=== PATIENT | female | born 1940 | race Caucasian/White ===

== ENCOUNTER 2019-03-08 15:27 | Inpatient (IN) | payer MEDICARE, SELFPAY ==
[2019-03-08] VITALS (7 sets, daily range): BP systolic 104–130; BP diastolic 62–75; PULSE 61–70; RESP 20–27; TEMP 36.4; O2SAT 89–100; BMI 31.8
--- NOTE | 2019-03-08 15:37 | XRR_ITS ---
PROCEDURE INFORMATION: Exam: XR Chest, 1 View Exam date and time: 03/08/2019 4:24 PM Age: 78 years old Clinical indication: Chest pain; Additional info: SOB TECHNIQUE: Imaging protocol: XR of the chest Views: 1 view. COMPARISON: CR Chest 1 view [id number] 11/09/2018 8:51 AM FINDINGS: Lungs: Right basilar airspace consolidation and/or atelectasis is noted. The right hemidiaphragm is obscured. Mild left basilar pneumonitis, atelectasis or scarring is unchanged. The vascularity is within normal limits. Underlying hyperinflation/COPD is noted. Pleural space: Small to moderate size right pleural effusion. No significant left pleural effusion. No pneumothorax. Heart/Mediastinum: The heart is enlarged. Bones/joints: No acute abnormality. XR/XR chest 1V portable [id number] IMPRESSION: 1. Right basilar airspace consolidation and/or atelectasis is noted. The right hemidiaphragm is obscured. Probable right pleural effusion. 2. Unchanged atelectasis/scarring left lower lobe.
--- NOTE | 2019-03-08 15:37 | ECG_ITS ---
Measurements Intervals [place] Rate: 68 P: 74 CA: 161 QRS: 133 QRSD: 174 T: -60 QT: 427 QTc: 455 SINUS RHYTHM LEFT BUNDLE BRANCH BLOCK [120+ ms QRS DURATION, 80+ ms Q/S IN V1/V2, 85+ ms R IN I/aVL/V5/V6] LATERAL MYOCARDIAL INFARCTION [40+ ms Q WAVE AND/OR ST/T ABNORMALITY IN I/aVL/V5/V6], PROBABLY RECENT Compared to ECG 11/08/2018 15:50:56 Myocardial infarct finding now present Sinus bradycardia no longer present Ventricular premature complex(es) no longer present Electronically Signed On 03-08-2019 18:34:49 VISCOSITY INSPECTOR by Genny Montez M.D. [email or web address]
[2019-03-08 16:28] LABS: Basophils % 0.4 %; Eosinophils % 0.6 %; Hematocrit 36.9 % (37.0-47.0); Lymphocytes # 0.8 10^3/uL (0.8-4.8); Lymphocytes % 16.1 %; Mean Corpuscular HGB Conc 29.8 g/dL (30.0-36.0); Mean Corpuscular Hemoglobin 27.3 pg (28.0-34.0); Mean Corpuscular Volume 91.6 fL (81-99); Mean Platelet Volume 10.9 fL (7.4-10.4); Monocytes # 0.6 10^3/uL (0.2-0.9); Monocytes % 11.9 %; Neutrophils # 3.6 10^3/uL (1.8-7.7); Neutrophils % 70.6 %; Nucleated Red Blood Cells % 0 %; Platelet Count 139 10^3/cmm (130-400); Red Blood Count 4.03 10^6/uL (4.1-5.3); Red Cell Distribution Width 18.4 % (12.1-15.1)
[2019-03-08 16:54] LABS: Alanine Aminotransferase 14 U/L (0-33); Albumin Level 3.2 g/dL (3.5-5.2); Alkaline Phosphatase 131 IU/L (35-105); Anion Gap 15.9 (5-19); Aspartate Amino Transferase 24 U/L (0-32); Blood Urea Nitrogen 44 mg/dL (8-23); Calcium 11.2 mg/dL (8.5-10.5); Carbon Dioxide 29 mmol/L (22-29); Chloride 93 mmol/L (98-107); Globulin 3.2 g/dL (1.3-4.6); Glucose 91 mg/dL (74-106); Potassium 4.9 mmol/L (3.5-5.1); Sodium 133 mmol/L (136-145); Total Bilirubin 0.6 mg/dL (0.15-1.2); Total Protein 6.4 g/dL (6.6-8.7)
--- NOTE | 2019-03-08 17:48 | ED_ITS ---
Entered by Abimbola Heredia, acting as scribe for Geovany Pineda MD, [facility] [place] Mar 08, 2019 15:27 HPI - SOB/Dyspnea General: Chief Complaint: Shortness of Breath/Dyspnea Stated Complaint: swollen limbs Time Seen by Provider: 03/08/19 17:49 Source: patient Mode of arrival: ambulatory Limitations: no limitations History of Present Illness: HPI Narrative: 78 yo Female presents to ED with complaint of shortness of breath. Pt states that she is filled up with water. Pt's daughter states that Dr. Lechuga sent her over from his office. Pt states that she only has 1 kidney. Pt states that she has CHF and Dr. Lechuga is concerned about it affecting her heart. Pt states that she has swelling in her legs, stomach, and hips. Pt's family states that patient is taking 80 mg of Lasix 3 times per day and the water is not coming off of her. Pt states that she is also having issues with her jaw not opening very wide for the past few months. Pt states that she can hardly take bites of food because of her jaw. MD elicited complaint: shortness of breath and cough Pertinent past history: congestive heart failure Timing: progressively worsening Exacerbating factors: lying flat, exertion and coughing Relieving factors: oxygen and upright position Known history of: congestive heart failure Associated symptoms: Reports orthopnea; Deny abdominal pain, chest pain, extremity pain, fever(s), nausea, palpitations, polydipsia, polyuria or vomiting Treatment prior to arrival: oxygen Review of Systems General: Reports: 10 or more systems reviewed and unremarkable except in HPI and below Const: Denies: fever, chills or body aches Eyes: Denies: change in vision, blurry vision or blind spots ENMT: Denies: throat pain, enlarged tonsils, painful swallowing, hoarseness, mouth pain or swelling of lips/tongue Card: Reports: edema, swelling of feet/ankles, shortness of breath on exertion and shortness of breath when lying down; Denies: chest pain, palpitations or irregular heart rhythm Resp: Reports: shortness of breath and productive cough; Denies: non-productive cough GI: Denies: abdominal pain, nausea or vomiting : Denies: flank pain, difficulty urinating, painful urination, urinary frequency, urinary urgency or urinary hesitancy Musc: Denies: neck pain, back pain, extremity pain, extremity swelling or darlene int pain Skin/Breast: Denies: rash, itching or redness Neuro: Denies: headache, numbness in extremities or weakness in extremities Endo: Denies: excessive urination, excessive thirst or tired all the time PFSH ED PFSH: Statuses (acute, chronic, etc) shown below reflect problem list status as previously entered and may not be historically accurate Medical History (Updated 03/08/19 @ 22:09 by Geovany Pineda MD, [facility] [place]) AAA (abdominal aortic aneurysm) (Acute) Anasarca (Acute) Anemia (Acute) CAD (coronary artery disease) (Acute) Cardiomyopathy (Acute) COPD (chronic obstructive pulmonary disease) (Acute) DVT (deep venous thrombosis) (Acute) Hyperlipidemia (Acute) Hypertension (Acute) Ischemic cardiomyopathy (Acute) Macrocytosis (Acute) Mediastinal mass (Acute) Surgical History S/P AAA repair (Acute) Family History Other CAD (coronary artery disease) Diabetes Social History (Updated 03/08/19 @ 21:29 by Genny Stinson MD) Smoking and tobacco status: current every day smoker Alcohol intake: never Substance/Drug Use: never Caregiver/support person: Yes Lives independently: No Household members: family Housing: House Marital status: Physical Exam Const: COMMON NORMALS: no apparent distress, average body habitus, oriented x3, no limitations, healthy appearing, alert and well nourished HENMT: COMMON NORMALS: normocephalic, head/scalp atraumatic and moist oral mucous membranes HEAD & SCALP: normocephalic and atraumatic Eye: COMMON NORMALS: PERRL, EOMs intact bilaterally, conjunctivae normal and no scleral icterus CONJUNCTIVA: Yes conjunctivae normal PUPIL: Yes PERRL Neck/C-Spine: COMMON NORMALS: full ROM, supple, no meningeal signs, no JVD and no carotid bruits Chest: COMMONS NORMALS: inspection of chest normal and palpation of chest normal Resp: COMMON NORMALS: normal respiratory effort, no retractions, no use of accessory muscles, clear to auscultation bilaterally and percussion normal AUSCULTATION: clear to auscultation bilaterally PERCUSSION: percussion normal Cardio: COMMON NORMALS: no JVD, regular rate, regular rhythm, S1 normal heart sound, S2 normal heart sound, no gallops, no clicks, no murmurs, no rub and p eripheral pulses 2+ throughout RATE: regular rate RHYTHM: regular rhythm HEART SOUNDS: S1 normal and S2 normal PERIPHERAL PULSES: pulses 2+ throughout GI: COMMON NORMALS: normal to inspection, nondistended, normoactive bowel sounds, soft to palpation, non-tender, no hepatosplenomegaly, no masses and no bruits PALPATION: Yes soft and Yes no hepatosplenomegaly : COMMON NORMALS: Yes no CVA tenderness BLADDER/KIDNEY EXAM: Yes no CVA tenderness Back/Pelvis: COMMON NORMALS: no CVA tenderness Extremity: COMMON NORMALS: normal to inspection, full ROM, normal capillary refill, no calf tenderness and no pedal edema Neuro: COMMON NORMALS: oriented x3 SENSORIUM/ORIENTATION: Yes alert MENINGEAL SIGNS: Yes no meningeal signs Skin: COMMON NORMALS: no rashes or lesions noted, no wounds, skin turgor normal, no jaundice, no petechiae and no mottling GENERAL SKIN EXAM: no rashes or lesions noted and turgor normal Course Consultations: Consultation #1: Dr. Grace, hospitalist. He kindly accepted the patient to his service. Vital Signs: Vital signs: Vital Signs Temperature 97.5 F L 03/08/19 20:57 Pulse Rate 61 03/08/19 20:57 Respiratory Rate 26 H 03/08/19 20:57 Blood Pressure 109/67 03/08/19 20:57 Pulse Oximetry 100 03/08/19 20:57 MDM - SOB/Dyspnea Medical Records: Attestation: I reviewed the patient's medical records. Lab Data: Attestation: I reviewed the patient's lab results. Labs: Lab Results 03/08/19 03/08/19 03/08/19 Range/Units 16:10 16:10 18:10 WBC 5.0 (4.0-10.0) 10^3/ uL RBC 4.03 L (4.1-5.3) 10^6/u L Hgb 11.0 L (11.5-15.3) g/dL Hct 36.9 L (37.0-47.0) % MCV 91.6 (81-99) fL MCH 27.3 L (28.0-34.0) pg MCHC 29.8 L (30.0-36.0) g/dL RDW 18.4 H (12.1-15.1) % Plt Count 139 (130-400) 10^3/c mm MPV 10.9 H (7.4-10.4) fL Neut % (Auto) 70.6 % Lymph % (Auto) 16.1 % Merrick % (Auto) 11.9 % Eos % (Auto) 0.6 % Baso % (Auto) 0.4 % Neut # (Auto) 3.6 (1.8-7.7) 10^3/u L Lymph # (Auto) 0.8 (0.8-4.8) 10^3/u L Merrick # (Auto) 0.6 (0.2-0.9) 10^3/u L Eos # (Auto) 0.0 (0.0-0.8) 10^3/u L Baso # (Auto) 0.0 (0.0-0.1) 10^3/u L Nucleated RBC % (a uto) 0 % Nucleated RBCs # 0.0 /100WBC Sodium 133 L (136-145) mmol/L Potassium 4.9 (3.5-5.1) mmol/L Chloride 93 L (98-107) mmol/L Carbon Dioxide 29 (22-29) mmol/L Anion Gap 15.9 (5-19) BUN 44 H (8-23) mg/dL Creatinine 1.5 H (0.5-0.9) mg/dL Glucose 91 (74-106) mg/dL Calcium 11.2 H (8.5-10.5) mg/dL Total Bilirubin 0.6 (0.15-1.2) mg/dL AST 24 (0-32) U/L ALT 14 (0-33) U/L Alkaline Phosphata se 131 H (35-105) IU/L Troponin T Baselin e 59 H (0-10) ng/mL NT-Pro-B Natriuret Pep [id number] H (0-450) pg/mL Total Protein 6.4 L (6.6-8.7) g/dL Albumin 3.2 L (3.5-5.2) g/dL Globulin 3.2 (1.3-4.6) g/dL Imaging Data^: CXR: Radiologist's impression: [address] [address] XRay Report Signed Patient: Aliya Gustafson #: [id number] : 1Acct#:[id number] Age/Sex: 78 / FADM Date: 03/08/19 Loc: ERRoom/Bed: Attending Dr: Ordering Provider/Ordering MD: Geovany Pineda MD, [facility] [place] Date of Service: 03/08/19 Procedure(s): XR chest 1V portable [id number] Accession Number(s): [id number] Report Number: [id number] PROCEDURE INFORMATION: Exam: XR Chest, 1 View Exam date and time: 03/08/2019 4:24 PM Age: 78 years old Clinical indication: Chest pain; Additional info: SOB TECHNIQUE: Imaging protocol: XR of the chest Views: 1 view. COMPARISON: CR Chest 1 view [id number] 11/09/2018 8:51 AM FINDINGS: Lungs: Right basilar airspace consolidation and/or atelectasis is noted. The right hemidiaphragm is obscured. Mild left basilar pneumonitis, atelectasis or scarring is unchanged. The vascularity is within normal limits. Underlying hyperinflation/COPD is noted. Pleural space: Small to moderate size right pleural effusion. No significant left pleural effusion. No pneumothorax. Heart/Mediastinum: The heart is enlarged. Bones/joints: No acute abnormality. XR/XR chest 1V portable [id number] IMPRESSION: 1. Right basilar airspace consolidation and/or atelectasis is noted. The right hemidiaphragm is obscured. Probable right pleural effusion. 2. Unchanged atelectasis/scarring left lower lobe. Dictated By:Shayla Gould Signed By:Skyler Gould Date/Time:03/08/19 1635 DD/ 1634 CT Abd/Pel: Radiologist's impression: [address] [address] [address] Scan Report Signed Patient: Aliya Gustafson #: [id number] : 1Acct#:[id number] Age/Sex: 78 / FADM Date: 03/08/19 Loc: ERRoom/Bed: Attending Dr: Ordering Provider/Ordering MD: Geovany Pineda MD, SONIA Date of Service: 03/08/19 Procedure(s): CT abdomen pelvis con [id number] Accession Number(s): [id number] Report Number: [id number] PROCEDURE INFORMATION: Exam: CT Abdomen And Pelvis Without Contrast Exam date and time: 03/08/2019 6:50 PM Age: 78 years old Clinical indication: Bloating; Prior surgery; Surgery type: Aaa, gb; Additional info: Abdominal distension TECHNIQUE: Imaging protocol: Computed tomography of the abdomen and pelvis without contrast. Total DLP: 1205.78 mGy-cm Radiation optimization: All CT scans at this facility use at least one of these dose optimization techniques: automated exposure control; mA and/or kV adjustment per patient size (includes targeted exams where dose is matched to clinical indication); or iterative reconstruction. COMPARISON: CTA Abdomen/Pelvis [id number] 01/13/2019 1:19 PM FINDINGS: Tubes, catheters and devices: A balloon bladder catheter is present. Lungs: Nonspecific bibasilar consolidation is present, consistent with atelectasis, edema, or pneumonia. Pleural space: There is a small left pleural effusion. There is a moderate size right pleural effusion. Both pleural effusions are slightly larger. Heart: The heart is enlarged. There is an unchanged small pericardial effusion. Liver: The liver has a finely nodular contour, consistent with cirrhosis. Gallbladder and bile ducts: There has been a cholecystectomy. Pancreas: Normal. No ductal dilation. Spleen: Normal. No splenomegaly. Adrenals: Normal. No mass. Kidneys and ureters: The left kidney is atrophic. There is no hydronephrosis or nephrolithiasis. Stomach and bowel: Unremarkable. No obstruction. No mucosal thickening. Appendix: No evidence of appendicitis. Intraperitoneal space: There is a small amount of ascites. Vasculature: There is a stent graft within an abdominal aortic aneurysm. The aneurysm sac is unchanged in appearance. No retroperitoneal fluid or evidence of leak. The aneurysm sac measures 5.6 by 6.3 cm in size image 49. Lymph nodes: Unremarkable.No enlarged lymph nodes. Bladder: Unremarkable as visualized. Reproductive: Unremarkable as visualized. Bones/joints: Osteopenia and moderate to severe degenerative changes in the spine are noted. No acute bony abnormality. Soft tissues: There is new diffuse subcutaneous and soft tissue edema compatible with anasarca. Diastasis of the rectus abdominus muscles with midline ventral hernia containing nonobstructed bowel and fat is noted. CT/CT abdomen pelvis wo con [id number] IMPRESSION: 1. Anasarca. Increasing pleural effusions. Small amount of ascites. Nodular contour of the liver is also noted compatible with mild cirrhosis. 2. Nonspecific bibasilar consolidation is present, consistent with atelectasis, edema, or pneumonia. 3. Diastasis of the rectus abdominus muscles with midline ventral hernia containing nonobstructed bowel and fat is noted. 4. Unchanged abdominal aortic aneurysm containing a stent graft. No evidence of retroperitoneal fluid or leaking aneurysm. 5. Atrophic left kidney. No hydronephrosis or nephrolithiasis. 6. Cardiomegaly. Radiation Dose CTDIVOL = (mGy): DLP = 1205.78 (mGy-cm) Dictated By:Shayla Gould Signed By:Anastasia Gouldigned Date/Time:03/08/191955 DD/ 54 EKG Data^: EKG 1: Attestation: I personally reviewed and interpreted this EKG as follows: EKG Interpretation Date: 03/08/19 EKG interpretation time: 15:45 Prior EKG tracings: not available for review Ischemic changes: q waves (Lead I) Interpretation: Sinus rhythm. Heart rate 68. Left bundle branch block. Normal axis EKG 2: Attestation: I personally reviewed and interpreted this EKG as follows: EKG Interpretation Date: 03/08/19 EKG interpretation time: 18:53 Prior EKG tracings: available for review Interpretation: No changes from the EKG earlier today Discharge Plan Discharge Patient Disposition: Admitted As Inpatient Admit Provider: Genny Stinson Clinical Impression: Anasarca, Congestive heart failure Condition: Stable Interventions: ED Discharge Assessment Last Done: 03/08/19 20:34 Discharge Date/Time: 03/08/19 20:35 Coding Level of Care Code ED Automation Operator for Chg Fwd Exam Problem Focused The documentation recorded by the scribe, [place],Abimbola, accurately reflects the service I personally performed and the decisions made by me, Geovany Pineda MD, [facility] [place] Mar 08, 2019 15:27
--- NOTE | 2019-03-08 18:08 | PC.NURSE ---
Patient reports that she was sent by Dr. Lechuga due to fluid overload. Patient states that she has had SOB. Patient reports the SOB increases with exertion and at night time. Patient states that she only has 1 kidney and it does not work well. Patient reports that she has CHF as well. Patient states she is on 2 water pills. Patient reports that her legs, and stomach are swelling. Patient reports that her legs have been weeping. Patient states that she has got so weak that it is difficult for her to get up.
--- NOTE | 2019-03-08 18:21 | CTR_ITS ---
PROCEDURE INFORMATION: Exam: CT Abdomen And Pelvis Without Contrast Exam date and time: 03/08/2019 6:50 PM Age: 78 years old Clinical indication: Bloating; Prior surgery; Surgery type: Aaa, gb; Additional info: Abdominal distension TECHNIQUE: Imaging protocol: Computed tomography of the abdomen and pelvis without contrast. Total DLP: 1205.78 mGy-cm Radiation optimization: All CT scans at this facility use at least one of these dose optimization techniques: automated exposure control; mA and/or kV adjustment per patient size (includes targeted exams where dose is matched to clinical indication); or iterative reconstruction. COMPARISON: CTA Abdomen/Pelvis [id number] 01/13/2019 1:19 PM FINDINGS: Tubes, catheters and devices: A balloon bladder catheter is present. Lungs: Nonspecific bibasilar consolidation is present, consistent with atelectasis, edema, or pneumonia. Pleural space: There is a small left pleural effusion. There is a moderate size right pleural effusion. Both pleural effusions are slightly larger. Heart: The heart is enlarged. There is an unchanged small pericardial effusion. Liver: The liver has a finely nodular contour, consistent with cirrhosis. Gallbladder and bile ducts: There has been a cholecystectomy. Pancreas: Normal. No ductal dilation. Spleen: Normal. No splenomegaly. Adrenals: Normal. No mass. Kidneys and ureters: The left kidney is atrophic. There is no hydronephrosis or nephrolithiasis. Stomach and bowel: Unremarkable. No obstruction. No mucosal thickening. Appendix: No evidence of appendicitis. Intraperitoneal space: There is a small amount of ascites. Vasculature: There is a stent graft within an abdominal aortic aneurysm. The aneurysm sac is unchanged in appearance. No retroperitoneal fluid or evidence of leak. The aneurysm sac measures 5.6 by 6.3 cm in size image 49. Lymph nodes: Unremarkable.No enlarged lymph nodes. Bladder: Unremarkable as visualized. Reproductive: Unremarkable as visualized. Bones/joints: Osteopenia and moderate to severe degenerative changes in the spine are noted. No acute bony abnormality. Soft tissues: There is new diffuse subcutaneous and soft tissue edema compatible with anasarca. Diastasis of the rectus abdominus muscles with midline ventral hernia containing nonobstructed bowel and fat is noted. CT/CT abdomen pelvis wo con [id number] IMPRESSION: 1. Anasarca. Increasing pleural effusions. Small amount of ascites. Nodular contour of the liver is also noted compatible with mild cirrhosis. 2. Nonspecific bibasilar consolidation is present, consistent with atelectasis, edema, or pneumonia. 3. Diastasis of the rectus abdominus muscles with midline ventral hernia containing nonobstructed bowel and fat is noted. 4. Unchanged abdominal aortic aneurysm containing a stent graft. No evidence of retroperitoneal fluid or leaking aneurysm. 5. Atrophic left kidney. No hydronephrosis or nephrolithiasis. 6. Cardiomegaly. Radiation Dose CTDIVOL = (mGy): DLP = 1205.78 (mGy-cm)
--- NOTE | 2019-03-08 18:25 | ECG_ITS ---
Measurements Intervals [place] Rate: 63 P: 48 DE: 171 QRS: 170 QRSD: 184 T: 18 QT: 455 QTc: 469 SINUS RHYTHM Left bundle branch block Possible LATERAL MYOCARDIAL INFARCTION [40+ ms Q WAVE AND/OR ST/T ABNORMALITY IN I/aVL/V5/V6], OF INDETERMINATE AGE Compared to ECG 03/08/2019 15:44:54 Possible myocardial infarct finding still present Electronically Signed On 03-09-2019 11:32:57 WIRE STITCHER OPERATOR by Tello Elizabeth M.D. [email or web address]
[2019-03-08] MEDS: FUROsemide 10 mg/mL SDV 10mL 80 MG IVP (18:39)
[2019-03-08 18:48] LABS: Troponin(5th) Baseline 59 ng/mL (0-10)
--- NOTE | 2019-03-08 20:05 | P.HP_ITS ---
Providers/Chief Complaint Chief Complaint: swollen limbs History of Present Illness Aliya Gustafson is a 78 year old female who carries diagnosis of ischemic cardiomyopathy EF 28%, COPD, DVT, chronic anticoagulation with Eliquis, AAA status post stent graft from left groin 02/[address] Lechuga today because of worsening edema. Patient has refused AICD in the past and has been taking Lasix along Bumex without much diuretic response, currently she is suffering from anasarca, and shortness of breath. Patient is stating that she is not active at all she is basically bedbound and get out of bed to go to bathroom otherwise her quality of life has been deteriorating. Her is assisting her with most of her daily activities, she is on Bumex milligram which she takes at noon with Lasix 3 times a day 80 mg without much diuretic response. She does not use any CPAP at night, she has been using oxygen [id number]. She is not complaining of any active chest pain at the moment, positive for orthopnea, PND and generalized body swelling up to her abdomen.. No recent fl ulike symptoms. Diagnostics in ER showed normal hemodynamics, she was put on 3 L nasal cannula for her hypoxia on room air. BNP extremely high 66,000, CT abdomen and chest x- ray imaging consistent with generalized anasarca with pleural effusion bilaterally When I saw her she was able to give me all the details. Review of Systems Const: Reports: body aches, change in appetite, change in weight, fatigue and change in sleep pattern; Denies: fever or chills Eyes: Denies: change in vision ENMT: Denies: throat pain Card: Reports: edema, swelling of feet/ankles and shortness of breath when lying down; Denies: chest pain, palpitations or irregular heart rhythm Resp: Reports: shortness of breath, non-productive cough and chest congestion GI: Reports: bloating; Denies: abdominal pain, nausea, vomiting, coffee grounds in vomit, diarrhea or constipation : Denies: flank pain, painful urination or urinary frequency Musc: Reports: extremity pain, extremity swelling, limited range of motion, muscle cramps, muscle weakness and decrease in muscle mass; Denies: neck pain or back pain Skin/Breast: Denies: rash or itching Neuro: Denies: headache or numbness in extremities Psych: Reports: anxiety Endo: Denies: excessive urination Gómez/Lymph: Denies: easy bruising All/Imm: Denies: hives Medications/Allergies Allergies Allergy/AdvReac Type Severity Reaction Status Date / Time No Known Allergies Allergy Unverified 03/08/19 14:43 PFSH Acute PFSH: Statuses (acute, chronic, etc) shown below reflect problem list status as previously entered and may not be historically accurate Medical History AAA (abdominal aortic aneurysm) (Acute) Anasarca (Acute) Anemia (Acute) CAD (coronary artery disease) (Acute) Cardiomyopathy (Acute) COPD (chronic obstructive pulmonary disease) (Acute) DVT (deep venous thrombosis) (Acute) Hyperlipidemia (Acute) Hypertension (Acute) Macrocytosis (Acute) Mediastinal mass (Acute) Surgical History S/P AAA repair (Acute) Family History Other CAD (coronary artery disease) Diabetes Social History (Updated 03/08/19 @ 21:29 by Genny Stinson MD) Smoking and tobacco status: current every day smoker Alcohol intake: never Substance/Drug Use: never Caregiver/support person: Yes Lives independently: No Household members: family Housing: House Marital status: Vitals/I&O/Wt Last Vital Signs Temp 97.5 F L 03/08/19 15:30 Pulse 65 03/08/19 18:38 Resp 27 H 03/08/19 18:38 BP 130/75 03/08/19 18:38 Pulse Ox 100 03/08/19 18:38 Weight last 48 hrs Weight 81.647 kg Physical Exam Narrative: EXAM NARRATIVE: Elderly female who looks to be in mild respiratory distress with chest congestion Has generalized anasarca Saturating well on 2 L nasal cannula Heart rate 70, blood pressure 110/70 Able to give me all the details Positive JVD, generalized anasarca, 3+ pitting edema starting from her feet extending up to her abdomen abdomen, abdominal wall edema positive Hull catheter is draining concentrated yellow urine Bilateral rhonchi with crackles all over her chest with decreased breath sounds on the right side S1, S2 no active murmur positive signs of decompensated heart failure Neurologically nonfocal exam She seems very weak and lethargic, muscle mass loss, EOMI, PERRLA Appropriate mood and affect She seems to have poor insight to her medical condition Urinary Catheter Management^: Hull: Cath Placed During This Visit: no Data : 03/08/19 16:10 03/08/19 16:10 A&P Assessment and plan (1) Anasarca: Status: Acute Code(s): R60.1 - Generalized edema (2) Cardiomyopathy: Status: Acute Code(s): I42.9 - Cardiomyopathy, unspecified (3) Anemia: Status: Acute Qualifiers: Anemia type: iron deficiency Iron deficiency anemia type: other iron deficiency Qualified Code(s): D50.8 - Other iron deficiency anemias Code(s): D64.9 - Anemia, unspecified (4) Acute kidney injury: Status: Acute Code(s): N17.9 - Acute kidney failure, unspecified Additional A&P Information Systolic congestive heart failure active exacerbation Ischemic cardiomyopathy causing reduced ejection fraction I believe active exacerbation is secondary to a gradual decline in her ejection fraction However she is not on metoprolol succinate, spironolactone, hydralazine, statins, Her EF is 28%, she has refused AICD in the past He seems to have poor insight to her medical condition Would use Bumex drip because she has not been responsive to Bumex and Lasix at home, she will be a poor candidate for ultrafiltration for removal of intravascular volume I would start her on low-dose metoprolol succinate, statins and avoid use of aspirin as she is on Eliquis COPD exacerbation due to congestive heart failure exacerbation and active smoking Counseled extensively on quitting smoking and her risk of respiratory failure and cardiac arrest Would use BiPAP for now decrease her work of breathing chronic kidney disease secondary to cardiorenal intervascular congestion Current creatinine 1.5, which is her baseline For bilateral pleural effusion: I would use diuretics to decrease pleural fluid and wait on thoracentesis for now, would continue Eliquis Previous history of DVT currently on Eliquis DVT prophylaxis: Not needed currently, she is on Eliquis Goals of care: We had discussion about possibilities of malignant arrhythmia such as V. tach V. fib, cardiac arrest, respiratory distress, patient is full code for now would like to discuss goals of care with her and update us in future However now she understands that because of her extremely reduced ejection fraction she is high risk for malignant arrhythmia and cardiac arrest Attestations Medical Necessity Statement*: Anticipating her stay to cross more than 2 midnights in the hospital for severe exacerbation of heart failure Time Spent in Patient Care: 60 Coding Level of Care Code Acute Alloy Weigher for Maria E Fwd Diagnoses Anasarca R60.1 Cardiomyopathy I42.9 Anemia D50.8 Anemia type: iron deficiency Iron deficiency anemia type: other iron deficiency Acute kidney injury N17.9
--- NOTE | 2019-03-08 20:25 | ECG_ITS ---
Measurements Intervals [place] Rate: 63 P: 61 UT: 161 QRS: 89 QRSD: 180 T: -35 QT: 438 QTc: 449 SINUS RHYTHM LEFT BUNDLE BRANCH BLOCK [120+ ms QRS DURATION, 80+ ms Q/S IN V1/V2, 85+ ms R IN I/aVL/V5/V6] LATERAL MYOCARDIAL INFARCTION , OF INDETERMINATE AGE [40+ ms Q WAVE AND/OR ST/T ABNORMALITY IN I/aVL/V5/V6] Compared to ECG 03/08/2019 15:44:54 No significant changes Electronically Signed On 03-09-2019 11:34:40 CLINICAL SOCIAL WORK THERAPIST by Tello Elizabeth M.D. [email or web address]
[2019-03-08] MEDS: bumetanide 25 MG in empty flexible container 1 EACH 4 MG IV (21:22)
[2019-03-08 21:27] LABS: Magnesium 2.2 mg/dL (1.7-2.3); Phosphorus 3.6 mg/dL (2.5-4.5)
[2019-03-08 21:31] LABS: Troponin 5 2HR 61.43 ng/mL (0-10); Troponin 5 2HR Delta 2.43 ABS# (0-10)
[2019-03-08] MEDS: ipratropium-albuterol 3 mL Neb INHALATION (23:25)
[2019-03-09] VITALS (13 sets, daily range): BP systolic 107–117; BP diastolic 63–76; PULSE 52–89; RESP 18–24; TEMP 36.4–36.8; O2SAT 96–100
[2019-03-09 00:55] LABS: Troponin 5 6HR 64.16 ng/L (0-10); Troponin 5 6HR Delta 5.16 ng/L (0-12)
[2019-03-09] MEDS: ipratropium-albuterol 3 mL Neb INHALATION ×4 (03:25→20:02)
[2019-03-09 05:52] LABS: Basophils % 0.5 %; Eosinophils % 0.7 %; Hematocrit 34.7 % (37.0-47.0); Hemoglobin 10.4 g/dL (11.5-15.3); Lymphocytes % 24.5 %; Mean Corpuscular Hemoglobin 28.3 pg (28.0-34.0); Mean Corpuscular Volume 94.6 fL (81-99); Mean Platelet Volume 10.7 fL (7.4-10.4); Monocytes # 0.6 10^3/uL (0.2-0.9); Monocytes % 13.6 %; Neutrophils # 2.4 10^3/uL (1.8-7.7); Neutrophils % 60.2 %; Nucleated Red Blood Cells % 0 %; Platelet Count 122 10^3/cmm (130-400); Red Blood Count 3.67 10^6/uL (4.1-5.3); Red Cell Distribution Width 18.2 % (12.1-15.1)
[2019-03-09 06:11] LABS: Anion Gap 16.1 (5-19); Blood Urea Nitrogen 40 mg/dL (8-23); Calcium 10.4 mg/dL (8.5-10.5); Carbon Dioxide 27 mmol/L (22-29); Chloride 98 mmol/L (98-107); Glucose 71 mg/dL (74-106); Osmolality Calculated 278 mOsm/kg (285-295); Potassium 5.1 mmol/L (3.5-5.1); Sodium 136 mmol/L (136-145)
[2019-03-09] MEDS: apixaban 5 mg Tablet PO ×2 (08:41→17:21)
[2019-03-09 08:54] LABS: Glucose Point of Care 58 mg/dL (70-110)
[2019-03-09] MEDS: FUROsemide 10 mg/mL SDV 10mL 100 MG IVP (09:16)
[2019-03-09] MEDS: FUROsemide 100 MG in sodium chloride 0.9% 40 ML IV ×2 (10:14→19:24)
[2019-03-09 10:54] LABS: Glucose Point of Care 83 mg/dL (70-110)
--- NOTE | 2019-03-09 12:41 | USCV_ITS ---
Aliya Gustafson Age: 78 Gender: F : 1940 Exam Date: 03/09/2019 14:23 Ordering Phys: Ambrocio Frazier MD Technologist: [place] [facility] [place]: Bilateral lower extremity swelling HISTORY: Lower extremity swelling. PROCEDURES: Venous duplex imaging was performed in bilateral lower extremities. The following venous structures were evaluated: common femoral vein, profunda vein, proximal portion of the greater saphenous vein, superficial femoral vein, and the popliteal vein. In addition, the posterior tibial and peroneal trunk were evaluated. FINDINGS: Normal 2-D Doppler and augmentation and compressibility throughout the lower extremity venous structures. Additional imaging through the proximal calf veins also reveals no thrombus. Limited evaluation of the greater saphenous vein is patent with no thrombus. Technically difficult study due to bilateral leg edema. CONCLUSIONS No evidence of right lower extremity DVT. No evidence of left lower extremity DVT. Pelon Li MD (Electronically Signed) Final Date: 09 March 2019 15:37 S
--- NOTE | 2019-03-09 12:44 | US_ITS ---
WS: [id number] ULTRASOUND RENAL TECHNIQUE: Ultrasound examination of both kidneys. CLINICAL INFORMATION: keith/ oluguria COMPARISON: None. FINDINGS: RIGHT: Right kidney is normal in size and appearance. Echogenicity: Normal. Cortical thickness: 1.3 cm; Normal. Hydronephrosis: None. Perinephric fluid: None. Right kidney measures: 11.5 cm x 4.1 cm x 3.9 cm. LEFT: Left kidney not seen Normal visualized aorta. Hull catheter US/US renal BI* [id number] IMPRESSION: 1. No hydronephrosis in right kidney. 2. Left kidney not seen. 3. Hull catheter in place. 4. Partially visualized small right pleural effusion. This could be followed up with chest radiograph or chest CT.
[2019-03-09] MEDS: metOLazone 5 MG Tablet PO (13:04)
[2019-03-09] MEDS: famotidine 20 mg/2 mL INJ IVP (13:12)
[2019-03-09] MEDS: metoprolol succinate ER (24 HR) 25 mg Tablet 12.5 MG PO (13:20)
--- NOTE | 2019-03-09 13:23 | PC.CHAP ---
Pastoral Care Encounter/Spiritual Assessment Type of Contact [] Declined fabrication and layout craftsman visit [] Patient/Family/Request visit [] Outpatient visit [] Follow-up visit [] Physician referral [] Code/Alert [x] Routine visit [] Staff referral [] Actively dying [] Patient sleeping [] Family support [] [] Out of room [] Palliative care [] [] Receiving care in room [] Pre-surgical visit [] Trauma [] Long length of stay [] ICU visit [] Other: Relational/Emotional Strength [x] Patient feels connected with others/family/visitors/staff [] Distress [] Loneliness/isolation [] Abandonment Spirituality of Patient [] Person of Elvia [] Attends Methodist of their Elvia [x] Believes in Prayer [] Reads Bible or Nondenominational materials [] There are Spiritual issues to be addressed Pipeline Operator Interventions [x] Prayer [x] Active listening [x] Non-anxious presence [x] Spiritual/emotional support [] Crisis/trauma care [] Spiritual counseling [] Bereavement support [] Provided bereavement packet [] Provided Bible/devotional materials [] Provided toy/stuffed animal, coloring book to patient or family member [] Provided Communion [] Anointing/[place] [] Salvation [x] Completed spiritual assessment [] Other: Impact on Illness or Injury [] Angry [] Fearful [] Anxious [] Often cries [x] Exhaustion [] Unable to work [] Unable to attend episcopalian [] Unable to walk/stand [] Unable to read [] Unable to drive [] Unable to eat/drink [] Unable to sleep [] Unable to be with family [] Patient intubated [] Other: Summary Patient seems like she wants to believe more for Gods touch. Time spent with patient 5 minutes
[2019-03-09 13:35] LABS: Iron 52 ug/dL (37-145); Percent Saturation 21.9 % (20-50); Thyroid Stimulating Hormone 3.45 uIU/mL (0.27-4.20); Total Iron Binding Capacity 237 mcg/dl; Unsaturated Iron Binding 185 ug/dL (112-347)
[2019-03-09 13:57] LABS: Bilirubin Urine Neg (NEGATIVE); Blood Urine 3+ (Negative); Glucose Urine UA Norm (Normal); Ketones Urine Negative (Negative); Leukocyte Esterase Urine 2+ (Negative); Nitrate Urine Negative (Negative); Protein Urine 1+ (Negative); Urine Appearance Cloudy (CLEAR); Urine Color Yellow (Yellow); Urobilinogen Urine Norm (Negative); pH Urine 5 (5-7)
[2019-03-09 14:09] LABS: Add Urine Culture? Yes; Bacteria Urine 2+; WBC Urine TOO NUMEROUS TO CNT /hpf (0-5)
[2019-03-09 14:10] LABS: RBC Urine 40-50 /hpf (0-2)
[2019-03-09 14:14] LABS: Potassium, Radom Urine 44 mmol/L; Urine Random Chloride 30 mmol/L
[2019-03-09 14:17] LABS: Urine Random Sodium 13 mmol/L
[2019-03-09 18:23] LABS: Anion Gap 16.9 (5-19); Blood Urea Nitrogen 42 mg/dL (8-23); Calcium 10.6 mg/dL (8.5-10.5); Carbon Dioxide 28 mmol/L (22-29); Chloride 94 mmol/L (98-107); Glucose 133 mg/dL (74-106); Osmolality Calculated 278 mOsm/kg (285-295); Potassium 4.9 mmol/L (3.5-5.1); Sodium 134 mmol/L (136-145)
--- NOTE | 2019-03-09 19:12 | P.PN_ITS ---
Subjective Subjective: Interval history: Admitted overnight. H&P and labs reviewed. This morning on evaluation patient is on Bumex drip. Patient has had around 300 cc of urine since overnight. States she is still feeling out of breath but mildly improved than before. Is worried about anasarca. Denies of having any nausea, vomiting, headache, palpitations, abdominal pain Vitals/I&O/Wt Last Vital Signs Temp 97.6 F 03/09/19 16:02 Pulse 87 03/09/19 16:02 Resp 20 H 03/09/19 16:02 BP 117/76 03/09/19 16:02 Pulse Ox 96 03/09/19 16:02 03/09/19 03/09/19 03/09/19 06:59 14:59 22:59 Intake Total 240 / 240 360 / 600 Output Total 320 / 320 300 / 300 200 / 500 Balance -320 / -320 -60 / -60 160 / 100 Weight last 48 hrs Weight 81.647 kg Physical Exam Narrative: EXAM NARRATIVE: Elderly female who looks to be in mild respiratory distress Positive JVD, generalized anasarca, 3+ pitting edema starting from her feet extending up to her abdomen abdomen, abdominal wall edema positive Hull catheter is draining concentrated yellow urine Chest: Bilateral rhonchi with crackles all over her chest with decreased breath sounds on the right side Cardiovascular: S1, S2, soft pansystolic murmur in the apex, JVD present, S3 gallop present, no rubs. Neurologically nonfocal exam She seems very weak and lethargic, muscle mass loss, EOMI, PERRLA Appropriate mood and affect She seems to have poor insight to her medical condition Urinary Catheter Management^: Hull: Cath Placed During This Visit: no Data : 03/09/19 05:05 03/09/19 17:41 A&P Assessment and plan (1) Anasarca: Status: Acute Code(s): R60.1 - Generalized edema (2) Cardiomyopathy: Status: Acute Code(s): I42.9 - Cardiomyopathy, unspecified (3) Acute kidney injury: Status: Acute Code(s): N17.9 - Acute kidney failure, unspecified (4) Single kidney: Status: Acute Code(s): Z90.5 - Acquired absence of kidney (5) Congestive heart failure: Status: Acute Qualifiers: Heart failure chronicity: acute on chronic Heart failure type: unspecified Qualified Code(s): I50.9 - Heart failure, unspecified Code(s): I50.9 - Heart failure, unspecified (6) Anemia: Status: Acute Qualifiers: Anemia type: iron deficiency Iron deficiency anemia type: other iron deficiency Qualified Code(s): D50.8 - Other iron deficiency anemias Code(s): D64.9 - Anemia, unspecified Additional A&P Information Anasarca : Due to Systolic congestive heart failure 2/2 Ischemic cardiomyopathy Last LEXISCAN SPECT CARDIAC STRESS TEST ([id number]) 04/01/2018 1. Unremarkable Lexiscan infusion. 2. Nuclear imaging to follow. 3. Hypertension Old myocardial infarction versus scarring noted in basal to distal anterior and apical wall. This study is negative for ischemia. There appeared to be multiple wall motion abnormalities as defined above. EKG segment will be documented separately ECHOCARDIOGRAPHY, COMPLETE ([id number]) 08/09/2018 Severe diffuse hypokinesia of the left ventricle with ejection fraction of 28%. Dilated left irregular cavity with Mild biatrial enlargement, Mod TR, PASP- 74 mmhg Overnight patient has been on Bumex drip without much improvement in the urine output. Patient gives history of single functioning kidney and concern of possible developing of renal failure will hold off on Bumex drip for now. We will give 100 mg IV Lasix stat followed by Lasix drip at 10 mg/h. We will start patient on metolazone 5 mg for now. Hoping to have improvement in oliguric status with the same. Will monitor for 24 hours. If no improvement in the urine output will go higher on the Lasix drip. Will monitor BMP at around 6 PM. If creatinine worsens will consult nephrology. Have discussed with patient and who is bedside regarding potential need of dialysis if patient does not have a good urine response to the IV diuresis. For now they would consider dialysis. If urine output does not improve will discuss with Dr. Lechuga regarding possible milrinone drip to help with slow fwd flow CHF state. CKD secondary to single functioning kidney along with cardiorenal syndrome. Med rec done for nephrotoxic drugs. We will monitor BMP at 6 PM and then daily. Treatment as above. Check urine lites, urine creatinine, renal ultrasound. COPD exacerbation due to congestive heart failure exacerbation and active smoking Counseled extensively on quitting smoking and her risk of respiratory failure and cardiac arrest Would use BiPAP for now decrease her work of breathing. O2 supplementation for SPO2 more than 90%. Duoneb round the clock, Budesonide BID. Previous history of DVT currently on Eliquis DVT prophylaxis: Not needed currently, she is on Eliquis Goals of care: We had discussion about possibilities of malignant arrhythmia such as V. tach V. fib, cardiac arrest, respiratory distress, patient is full code for now would like to discuss goals of care with her and update us in future However now she understands that because of her extremely reduced ejection fraction she is high risk for malignant arrhythmia and cardiac arrest. Cardiac renal diet Attestations Medical Necessity Statement*: Needs hospitalization for management of severe anasarca Time Spent in Patient Care: Greater than 35 minutes Coding Level of Care Code Acute Office Machinery Or Equipment Installer for Jhonny Landers Diagnoses Anasarca R60.1 Cardiomyopathy I42.9 Acute kidney injury N17.9 Single kidney Z90.5 Congestive heart failure I50.9 Heart failure chronicity: acute on chronic Heart failure type: unspecified Anemia D50.8 Anemia type: iron deficiency Iron deficiency anemia type: other iron deficiency
[2019-03-09] MEDS: budesonide 0.5 mg/2 mL Neb INHALATION (20:02)
--- NOTE | 2019-03-09 21:10 | PC.NURSE ---
Accurate management of i and o
[2019-03-09] MEDS: atorvastatin 40 mg Tablet 20 MG PO (21:14)
[2019-03-09] MEDS: LORazepam 0.5 mg Tablet PO (21:17)
--- NOTE | 2019-03-09 23:10 | PC.NURSE ---
elevated arm on pillow but refused to turn at this time. Will attempt at later time.
[2019-03-10] VITALS (28 sets, daily range): BP systolic 101–126; BP diastolic 59–70; PULSE 57–83; RESP 16–37; TEMP 36.4–36.6; O2SAT 91–98
[2019-03-10] MEDS: acetaminophen 325 mg Tablet 650 MG PO (00:10)
[2019-03-10] MEDS: famotidine 20 mg/2 mL INJ IVP ×2 (00:11→12:11)
--- NOTE | 2019-03-10 02:03 | PC.NURSE ---
Awakens easily denies sob or pain.
[2019-03-10] MEDS: ipratropium-albuterol 3 mL Neb INHALATION ×3 (03:18→21:30)
[2019-03-10 04:13] LABS: Basophils % 0.4 %; Eosinophils % 0.4 %; Hematocrit 33.5 % (37.0-47.0); Hemoglobin 10.2 g/dL (11.5-15.3); Lymphocytes # 0.7 10^3/uL (0.8-4.8); Lymphocytes % 16.3 %; Mean Corpuscular HGB Conc 30.4 g/dL (30.0-36.0); Mean Corpuscular Hemoglobin 28.3 pg (28.0-34.0); Mean Corpuscular Volume 92.8 fL (81-99); Mean Platelet Volume 9.9 fL (7.4-10.4); Monocytes # 0.6 10^3/uL (0.2-0.9); Neutrophils # 3.1 10^3/uL (1.8-7.7); Neutrophils % 69.2 %; Nucleated Red Blood Cells % 0 %; Platelet Count 119 10^3/cmm (130-400); Red Blood Count 3.61 10^6/uL (4.1-5.3); Red Cell Distribution Width 18.5 % (12.1-15.1); White Blood Count 4.5 10^3/uL (4.0-10.0)
[2019-03-10 04:38] LABS: Alanine Aminotransferase 12 U/L (0-33); Albumin Level 2.6 g/dL (3.5-5.2); Alkaline Phosphatase 107 IU/L (35-105); Anion Gap 13.5 (5-19); Aspartate Amino Transferase 19 U/L (0-32); Blood Urea Nitrogen 38 mg/dL (8-23); Calcium 10.6 mg/dL (8.5-10.5); Carbon Dioxide 30 mmol/L (22-29); Chloride 97 mmol/L (98-107); Globulin 3.2 g/dL (1.3-4.6); Glucose 101 mg/dL (74-106); Phosphorus 4.1 mg/dL (2.5-4.5); Potassium 4.5 mmol/L (3.5-5.1); Sodium 136 mmol/L (136-145); Total Bilirubin 0.6 mg/dL (0.15-1.2); Total Protein 5.8 g/dL (6.6-8.7)
[2019-03-10] MEDS: metOLazone 5 MG Tablet PO (09:13)
[2019-03-10] MEDS: apixaban 5 mg Tablet PO ×2 (09:13→18:12)
[2019-03-10] MEDS: metoprolol succinate ER (24 HR) 25 mg Tablet 12.5 MG PO (09:14)
--- NOTE | 2019-03-10 14:17 | PM.PN ---
Subjective Subjective: Interval history: No acute events overnight. Lasix drip was discontinued last night due to borderline low blood pressures. As per the chart lowest charted blood pressure at around 1 AM is 101/60. Patient remained asymptomatic. On examination this morning patient denies of having any nausea, vomiting, headache, dizziness complains of mild shortness of breath. Vitals/I&O/Wt Last Vital Signs Temp 97.9 F 03/10/19 11:24 Pulse 62 03/10/19 11:24 Resp 18 03/10/19 11:24 BP 121/68 03/10/19 11:24 Pulse Ox 92 03/10/19 11:24 03/09/19 03/10/19 03/10/19 22:59 06:59 14:59 Intake Total 495.833 / 735.833 90 / 825.833 120 / 120 Output Total 625 / 925 775 / 1700 225 / 225 Balance -129.167 / -189.167 -685 / -874.167 -105 / -105 Weight last 48 hrs Weight 85.003 kg Weight 86.273 kg Weight 81.647 kg Physical Exam Narrative: EXAM NARRATIVE: Elderly female who looks to be in mild respiratory distress Positive JVD, generalized anasarca, 3+ pitting edema starting from her feet extending up to her abdomen abdomen, abdominal wall edema positive Hull catheter is draining concentrated yellow urine Chest: Bilateral rhonchi with crackles all over her chest with decreased breath sounds on the right side Cardiovascular: S1, S2, soft pansystolic murmur in the apex, JVD present, S3 gallop present, no rubs. Neurologically nonfocal exam She seems very weak and lethargic, muscle mass loss, EOMI, PERRLA Appropriate mood and affect She seems to have poor insight to her medical condition Urinary Catheter Management^: Hull: Cath Placed During This Visit: no Data : 03/10/19 03:30 03/10/19 03:30 Micro: Microbiology 03/09/19 13:20 Urine Culture - Preliminary Urine,Clean Catch Yeast species A&P Assessment and plan (1) Anasarca: Status: Acute Code(s): R60.1 - Generalized edema (2) Cardiomyopathy: Status: Acute Code(s): I42.9 - Cardiomyopathy, unspecified (3) Acute kidney injury: Status: Acute Code(s): N17.9 - Acute kidney failure, unspecified (4) Single kidney: Status: Acute Code(s): Z90.5 - Acquired absence of kidney (5) Congestive heart failure: Status: Acute Qualifiers: Heart failure chronicity: acute on chronic Heart failure type: unspecified Qualified Code(s): I50.9 - Heart failure, unspecified Code(s): I50.9 - Heart failure, unspecified (6) Anemia: Status: Acute Qualifiers: Anemia type: iron deficiency Iron deficiency anemia type: other iron deficiency Qualified Code(s): D50.8 - Other iron deficiency anemias Code(s): D64.9 - Anemia, unspecified Additional A&P Information Anasarca : Due to Systolic congestive heart failure 2/2 Ischemic cardiomyopathy Last LEXISCAN SPECT CARDIAC STRESS TEST ([id number]) 04/01/2018 1. Unremarkable Lexiscan infusion. 2. Nuclear imaging to follow. 3. Hypertension Old myocardial infarction versus scarring noted in basal to distal anterior and apical wall. This study is negative for ischemia. There appeared to be multiple wall motion abnormalities as defined above. EKG segment will be documented separately ECHOCARDIOGRAPHY, COMPLETE ([id number]) 08/09/2018 Severe diffuse hypokinesia of the left ventricle with ejection fraction of 28%. Dilated left irregular cavity with Mild biatrial enlargement, Mod TR, PASP- 74 mmhg Blood pressure better now. Will restart the Lasix drip but 15 mg/h. Continue with metolazone 5 mg. Day 2/3. Case discussed with Dr. Lechuga. He agrees patient is not having a good diuretic response probably because of slow flow system. We will plan to try dobutamine at a fixed drip of 5 mg/kg body weight per hour along with diuresis. If creatinine worsens will consult nephrology. CKD secondary to single functioning kidney along with cardiorenal syndrome. Med rec done for nephrotoxic drugs. Creatinine stable. Continue to monitor BMP daily. If creatinine worsens will consult nephrology. Treatment as above. Check urine lites, urine creatinine, renal ultrasound. COPD exacerbation due to congestive heart failure exacerbation and active smoking: Counseled extensively on quitting smoking and her risk of respiratory failure and cardiac arrest Would use BiPAP as needed. O2 supplementation for SPO2 more than 90%. Duoneb round the clock, Budesonide BID. Previous history of DVT currently on Eliquis DVT prophylaxis: Not needed currently, she is on Eliquis Goals of care: We had discussion about possibilities of malignant arrhythmia such as V. tach V. fib, cardiac arrest, respiratory distress, patient is full code for now would like to discuss goals of care with her and update us in future. However now she understands that because of her extremely reduced ejection fraction she is high risk for malignant arrhythmia and cardiac arrest. Cardiac renal diet Attestations Medical Necessity Statement*: Needs hospitalization for management of severe anasarca Time Spent in Patient Care: Greater than 35 minutes Coding Level of Care Code Acute Charge Master Coordinator for [facility] Fwd Diagnoses Anasarca R60.1 Cardiomyopathy I42.9 Acute kidney injury N17.9 Single kidney Z90.5 Congestive heart failure I50.9 Heart failure chronicity: acute on chronic Heart failure type: unspecified Anemia D50.8 Anemia type: iron deficiency Iron deficiency anemia type: other iron deficiency
[2019-03-10] MEDS: FUROsemide 100 MG in sodium chloride 0.9% 40 ML IV (14:37)
--- NOTE | 2019-03-10 16:53 | PC.NURSE ---
1600 pt was taken down in wheelchair to [facility] for drip. at bedside. Report given to Denise BOB.
--- NOTE | 2019-03-10 20:56 | PC.NURSE ---
Patient sitting up on the side of the bed. Call light used and upon answering call light, patient asked to be placed back to bed, Assisted patient back to bed, with assistance of another nurse, left arm on pillow with pad underneath, patient has weeping and is alert and oriented to person, time, place, and situation, will continue to monitor patient. Call light wiithin reach. Care continued.
[2019-03-10] MEDS: budesonide 0.5 mg/2 mL Neb INHALATION (21:30)
[2019-03-10] MEDS: atorvastatin 40 mg Tablet 20 MG PO (21:48)
[2019-03-10 22:00] LABS: Glucose Point of Care 123 mg/dL (70-110)
[2019-03-11] VITALS (53 sets, daily range): BP systolic 103–150; BP diastolic 55–94; PULSE 58–86; RESP 15–50; TEMP 36.6; O2SAT 86–100
[2019-03-11] MEDS: FUROsemide 100 MG in sodium chloride 0.9% 40 ML IV ×2 (00:34→07:28)
[2019-03-11] MEDS: famotidine 20 mg/2 mL INJ IVP ×2 (01:59→13:07)
--- NOTE | 2019-03-11 02:38 | PC.NURSE ---
assisted patient in sitting position on the side of the bed, patient is visiting with her roomate, orientated both to the time. Call light within reach. Care continued.
[2019-03-11] MEDS: ipratropium-albuterol 3 mL Neb INHALATION ×3 (03:29→20:33)
[2019-03-11 05:11] LABS: Basophils % 0.2 %; Hematocrit 32.4 % (37.0-47.0); Hemoglobin 9.6 g/dL (11.5-15.3); Lymphocytes # 0.5 10^3/uL (0.8-4.8); Lymphocytes % 9.5 %; Mean Corpuscular HGB Conc 29.6 g/dL (30.0-36.0); Mean Corpuscular Hemoglobin 27.4 pg (28.0-34.0); Mean Corpuscular Volume 92.6 fL (81-99); Mean Platelet Volume 10.8 fL (7.4-10.4); Monocytes # 0.7 10^3/uL (0.2-0.9); Monocytes % 12.1 %; Neutrophils # 4.2 10^3/uL (1.8-7.7); Neutrophils % 77.8 %; Nucleated Red Blood Cells % 0 %; Platelet Count 113 10^3/cmm (130-400); Red Cell Distribution Width 18.7 % (12.1-15.1); White Blood Count 5.5 10^3/uL (4.0-10.0)
[2019-03-11 05:25] LABS: Alanine Aminotransferase 12 U/L (0-33); Albumin Level 2.7 g/dL (3.5-5.2); Alkaline Phosphatase 107 IU/L (35-105); Anion Gap 15.1 (5-19); Aspartate Amino Transferase 19 U/L (0-32); Blood Urea Nitrogen 38 mg/dL (8-23); Calcium 10.6 mg/dL (8.5-10.5); Carbon Dioxide 28 mmol/L (22-29); Chloride 95 mmol/L (98-107); Glucose 127 mg/dL (74-106); Magnesium 2.1 mg/dL (1.7-2.3); Phosphorus 4.4 mg/dL (2.5-4.5); Potassium 4.1 mmol/L (3.5-5.1); Sodium 134 mmol/L (136-145); Total Bilirubin 0.7 mg/dL (0.15-1.2); Total Protein 5.7 g/dL (6.6-8.7)
--- NOTE | 2019-03-11 06:18 | PC.NURSE ---
Patient called up to nurses station, and was laughing on phone, patient was attempting to call at home, called and states, I will be up there shortly to see my . Information given to patient and she stated oh good
--- NOTE | 2019-03-11 08:59 | ECG_ITS ---
Measurements Intervals [place] Rate: 76 P: 22 WV: 139 QRS: 132 QRSD: 181 T: -30 QT: 442 QTc: 498 SINUS RHYTHM WITH OCCASIONAL VENTRICULAR PREMATURE COMPLEXES WITH FREQUENT SUPRAVENTRICULAR PREMATURE COMPLEXES INTRAVENTRICULAR CONDUCTION DELAY [130+ ms QRS DURATION] LATERAL MYOCARDIAL INFARCTION [40+ ms Q WAVE AND/OR ST/T ABNORMALITY IN I/aVL/V5/V6], OF INDETERMINATE AGE Compared to ECG 03/08/2019 23:03:21 Ventricular premature complex(es) now present Intraventricular conduction delay now present Left bundle-branch block no longer present Myocardial infarct finding still present Electronically Signed On 03-11-2019 16:24:20 RETAIL FIELD REPRESENTATIVE by Bharath Lechuga M.D. [email or web address]
--- NOTE | 2019-03-11 09:16 | XRR_ITS ---
PROCEDURE INFORMATION: Exam: XR Chest, 1 View Exam date and time: 03/11/2019 9:17 AM Age: 78 years old Clinical indication: Shortness of breath; Additional info: SOB TECHNIQUE: Imaging protocol: XR of the chest Views: 1 view. COMPARISON: CR XR chest 1V portable [id number] 03/08/2019 4:19 PM FINDINGS: Lungs: There is mild pulmonary vascular congestion. There is a patchy right midlung opacity. Pleural space: There are bilateral pleural effusions right greater than left, increased from prior. No discernible pneumothorax. Heart/Mediastinum: There is unchanged cardiomegaly. Vasculature: Atherosclerotic calcifications are noted within the aortic arch. Partially imaged aortic stent graft material is noted. Bones/joints: There are degenerative changes of the spine and bilateral shoulders. XR/XR chest 1V portable [id number] IMPRESSION: 1. Pulmonary vascular congestion with interval increase in size of bilateral pleural effusions and cardiomegaly suggesting CHF. 2. Patchy right midlung opacity, likely reflecting atelectasis. Early consolidation is possible and clinical correlation is suggested.
--- NOTE | 2019-03-11 09:16 | USCV_ITS ---
Aliya Gustafson Age: 78 Gender: F : 1940 Exam Date: 03/11/2019 09:40 Ordering Phys: Fabian Reyes MD Technologist: Ekaterina Steve Exam Location: [facility] [place] Indication: SOB BP: 124 / 67 HR: Rhythm: Sinus Technical Quality: Suboptimal MEASUREMENTS (Male / Female) Normal Values 2D ECHO LV Diastolic Diameter PLAX 6.4 cm 4.2 - 5.9 / 3.9 - 5.3 cm LV Systolic Diameter PLAX 6.1 cm LV Chamber Size 6.3 cm IVS Diastolic Thickness 1.7 cm 0.6 - 1.0 / 0.6 - 0.9 cm IVS Systolic Thickness 1.3 cm LVPW Diastolic Thickness 1.1 cm 0.6 - 1.0 / 0.6 - 0.9 cm LVPW Systolic Thickness 1.1 cm RV Chamber Size 3.7 cm LVOT Diameter 1.7 cm LV Ejection Fraction 2D Teich 10.7 % LA Diameter 4.7 cm LA Width 5.0 cm LA Height 7.0 cm RA Width 4.1 cm RA Height 6.0 cm Aorta at Sinotubular Diameter 2.1 cm M-MODE LV Diastolic Diameter MM 6.9 cm 4.2 - 5.9 / 3.9 - 5.3 cm LV Systolic Diameter MM 7.1 cm LV Ejection Fraction MM Teich -6.0 % IVS Diastolic Thickness MM 1.9 cm 0.6 - 1.0 / 0.6 - 0.9 cm IVS Systolic Thickness MM 1.3 cm LVPW Diastolic Thickness MM 1.3 cm 0.6 - 1.0 / 0.6 - 0.9 cm LVPW Systolic Thickness MM 1.9 cm Aortic Annulus Diameter 3.2 cm LA Ao Ratio MM 1.5 MV E Point Septal Separation 3.1 cm DOPPLER AV Peak Velocity 285.0 cm/s LVOT Peak Velocity 88.0 cm/s AV Area Cont Eq vti 0.7 cm squared AV Area Cont Eq pk 0.7 cm squared MV Area PHT 6.3 cm squared Mitral E to A Ratio 0.9 MV E' Velocity 100.0 cm/s TR Peak Velocity 403.0 cm/s TR Peak Gradient 44.1 mmHg TR Mean Velocity 229.8 cm/s TR Mean Gradient 22.1 mmHg TR Velocity Time Integral 94.8 cm TV Peak E Velocity 72.0 cm/s Right Atrial Pressure 15.0 mmHg Pulmonary Artery Systolic Pressu 80.0 mmHg FINDINGS Left Ventricle Dilated left ventricle with severe diffuse hypokinesia. LV ejection fraction around 10 to 15%. The septum and apex appears to be dyskinetic Right Ventricle Mildly dilated with slightly diminished ejection fraction Right Atrium Moderately increased right atrial size. Left Atrium Moderately increased left atrial size. Mitral Valve Thickened mitral valve. Moderately severe mitral valve regurgitation. Aortic Valve Thickened aortic valve. Tricuspid Valve Moderate tricuspid valve regurgitation. Estimated pulmonary artery peak systolic pressure of 80 mmHg Pulmonic Valve Mild pulmonary valve regurgitation. Pericardium Small pericardial effusion. Features of large pleural effusion Aorta Normal aortic annulus size. CONCLUSIONS #1. Severe diffuse hypokinesia left ventricle with ejection fraction of 10 to 15% #2. Severe pulmonary hypertension with an estimated pulmonary artery peak systolic pressure of 80 mmHg #3. Moderately severe mitral regurgitation with a moderate tricuspid and mild pulmonic regurgitation #4. Moderate biatrial enlargement #5. Thickened aortic and mitral valves #6. Mildly dilated right ventricle with a slightly diminished ejection fraction Compared to the previous study from August 2018, there is significant worsening of the LV systolic function Dr Bharath Lechuga MD [facility] (Electronically Signed) Final Date: 11 March 2019 12:02 S
[2019-03-11] MEDS: apixaban 5 mg Tablet PO ×2 (09:17→17:32)
[2019-03-11] MEDS: bisacodyl 5 mg Tablet 10 MG PO (09:17)
[2019-03-11] MEDS: metOLazone 5 MG Tablet PO (09:17)
--- NOTE | 2019-03-11 09:23 | CTR_ITS ---
PROCEDURE INFORMATION: Exam: CT Chest Without Contrast Exam date and time: 03/11/2019 9:25 AM Age: 78 years old Clinical indication: Shortness of breath and other: Elevated lungs; Additional info: SOB. Evaluate lungs history of chf TECHNIQUE: Imaging protocol: Computed tomography of the chest without contrast. Total DLP: 795.24 mGy-cm Radiation optimization: All CT scans at this facility use at least one of these dose optimization techniques: automated exposure control; mA and/or kV adjustment per patient size (includes targeted exams where dose is matched to clinical indication); or iterative reconstruction. COMPARISON: CTA Chest-Pulmonary Emb [id number] 08/08/2018 4:48 PM FINDINGS: Lungs: Streaky opacities within the right upper, right middle and bilateral lower lobes likely reflects atelectasis. Mild emphysematous change is again noted. Scattered ground-glass opacities with mild interlobular septal thickening right greater than left likely reflects mild pulmonary edema. Pleural space: There is a large right-sided pleural effusion, increased from prior. There is a small left pleural effusion, increased from prior. No evidence of pneumothorax. Heart: The heart is enlarged and unchanged. There is a small amount of pericardial fluid, not significantly changed. Pulmonary arteries: The main pulmonary artery measures up to 3.4 cm and is unchanged. Aorta: Partially imaged abdominal aortic stent graft material is again noted. Great vessels off aortic arch: Atherosclerotic calcifications are pesent within the aorta, branch and coronary vessels. Lymph nodes: No enlarged lymph nodes. Kidneys and ureters: The visualized left kidney is hypoplastic. Intraperitoneal space: There is a small air-fluid level within the left maxillary sinus. Bones/joints: There are degenerative changes of the spine and bilateral glenohumeral joints. There are no acute osseous findings. Soft tissues: There is diffuse anasarca with asymmetric soft tissue fullness left greater than right. CT/CT chest wo con [id number] IMPRESSION: 1. Large right and small left pleural effusions, increased from prior. Given the concurrent cardiomegaly and likely mild pulmonary edema, constellation of findings favor CHF. 2. Streaky opacities within the right upper, right middle and bilateral lower lobes likely reflects atelectasis. Early consolidation is possible and clinical correlation is suggested. 3. Small pericardial effusion, not significantly changed. 4. Anasarca with asymmetric soft tissue fullness left greater than right. Findings are of uncertain clinical significance and may be related to patient positioning. 5. Additional nonacute findings as detailed above. Radiation Dose CTDIVOL = (mGy): DLP = 795.24 (mGy-cm)
[2019-03-11 10:02] LABS: ABG PH Result 7.31 (7.35-7.45); Arterial Blood Gas Hematocrit 31.2 % (37-47); Base Excess ABG 5.4 mmol/L (-2.0-2.0); Blood Gas Allen Test Pos; Blood Gas Operator Identificat glc; Blood Gas Sample Site Radial, left; Blood Gas Sample Type Arterial; HCO3 ABG 33.1 mmol/L (22-26); Oxygen Device NC; PO2 ABG 61.9 mmHg (80.0-100.0)
[2019-03-11 10:04] LABS: ABG PCO2 66.2 mmHg (35-45)
[2019-03-11 10:25] LABS: Hemoglobin 9.7 g/dL (11.5-15.3)
[2019-03-11 10:39] LABS: Lactic Acid 1.4 mmol/L (0.5-2.2)
[2019-03-11 10:40] LABS: Troponin(5th) Baseline 67 ng/mL (0-10)
[2019-03-11] MEDS: FUROsemide 10 mg/mL SDV 10mL 120 MG IVP (11:08)
--- NOTE | 2019-03-11 11:37 | P.CONIM_ITS ---
Providers/Reason For Consult Consulting Physican/Specialty*: Martha Lechuga MD/cardiology Reason for Consult*: Patient with anasarca, cardiomyopathy/congestive heart failure Attending Physician: Fabian Reyes MD History of Present Illness History of Present Illness Aliya Gustafson is a 78 year old female, is admitted to the hospital with complaints of worsening swelling of the extremities and increasing shortness of breath. Patient is known to have cardiomyopathy and pulmonary hypertension. She also has a history of coronary disease and previous PCI. She had multiple hospital admissions during the last 1 year for various complaints including decompensated heart failure. She was found to have features of anasarca/congestive heart failure. She was started on IV diuretics. Since there is no significant improvement, she was started on IV Dobutrex yesterday. Patient continues to be short of breath with no significant improvement in the overall status. Cardiology consult is requested for further cardiac evaluation recommendations. Patient is known to have coronary disease and had PCI of the right coronary artery many years ago. Most recently, she authorization in August 2017. At that time, she was found to have patent stented segment of the right coronary artery. She had moderate disease in the cells. Since then, patient had a myocardial perfusion imaging which revealed no evidence of ischemia. Her most recent echocardiogram revealed an LV ejection fraction 28%. Patient was seen in the clinic 2 days ago with complaints of increasing swelling of the extremities and shortness of breath. He was found to have massive edema of the lower extremities and the abdomen. She was subsequently evaluated in the emergency room and then got admitted to the hospital for further evaluation management. Patient denies any fever, chills or cough. No palpitation, dizziness or syncopal episode. Her BNP was progressively increasing from 29,000 in August of last year to around 72,000 today. She denies any fever or chills. No cough. She has a history of COPD with intermittent exacerbation. Currently she is on a BiPAP. She was getting IV Lasix and Bumex. He is also known to have single kidney and stage III kidney disease. She was started on Dobutrex intravenous infusion yesterday and currently is on 7.5 mics per KG per minute. Currently there was no significant improvement in her overall functional status Review of Systems Narrative: CONSTITUTIONAL: No fever or chills. Has been having generalized weakness and lethargy EYES: No blurring of vision or other visual disturbances lately. ENT: No hoarseness of voice, auditory disturbances or sore throat. CARDIOVASCULAR: As mentioned above. RESPIRATORY: No significant cough. Increasing shortness of breath and some dry cough GASTROINTESTINAL: No hematemesis or melena. GENITOURINARY: No dysuria or hematuria. INTEGUMENTARY: No skin rashes or history of skin cancer. NEURO: No transient ischemic attacks or amaurosis. PSYCHIATRIC: No history of psychosis or major depression. HEMATOLOGIC: Has a history of chronic anemia ENDOCRINE: No history of polyuria or polydipsia. MUSCULOSKELETAL: No recent joint pain or swelling. ALLERGY/IMMUNOLOGY: As mentioned above. Meds/Allergies Home Medications and Allergies Home Medications Medication Instructions Recorded Confirmed Type albuterol sulfate 2.5 mg INHALATION Q6H PRN 03/08/19 03/08/19 History apixaban 5 mg tablet 5 mg PO BID 03/08/19 03/08/19 History bumetanide 2 mg PO DAILY 03/08/19 03/08/19 History furosemide 80 mg tablet 80 mg PO TID tab 03/08/19 03/08/19 History lorazepam 0.5 mg tablet 0.5 mg PO QDAY PRN 03/08/19 03/08/19 History nitroglycerin 0.4 mg sublingual 0.4 mg SUBLINGUAL Q5M PRN 03/08/19 03/08/19 History tablet potassium chloride 20 meq PO DAILY 03/08/19 03/08/19 History ropinirole 1 - 2 mg PO DAILY 03/08/19 03/08/19 History vitamin B complex 1 tab PO QDAY 03/08/19 03/08/19 History Allergies Allergy/AdvReac Type Severity Reaction Status Date / Time No Known Allergies Allergy Unverified 03/08/19 14:43 Current Medications Current Medications Generic Name Dose Route Start Last Admin Trade Name Freq PRN Reason Stop Dose Admin Acetaminophen 650 mg 03/09/19 23:56 03/10/19 00:10 Tylenol PO 650 mg Q6H PRN Administration MILD PAIN Albuterol/Ipratropium 3 ml 03/09/19 15:00 03/11/19 09:24 Duoneb INHALATION Not Given Q6H.RESPIRATORY AVILA Apixaban 5 mg 03/09/19 09:00 03/11/19 09:17 Eliquis PO 5 mg BID AVILA Administration Atorvastatin Calcium 20 mg 03/09/19 21:00 03/10/19 21:48 Lipitor PO 20 mg BEDTIME AVILA Administration Bisacodyl 10 mg 03/09/19 12:58 03/11/19 09:17 Dulcolax PO 10 mg DAILY PRN Administration CONSTIPATION Budesonide 0.5 mg 03/09/19 20:00 03/11/19 09:23 Pulmicort INHALATION Not Given BID.RESPIRATORY AVILA Famotidine 20 mg 03/09/19 13:00 03/11/19 01:59 Pepcid Inj IVP 20 mg Q12H AVILA Administration Furosemide 100 mg/ Sodium 50 mls @ 7.5 mls/hr 03/09/19 09:00 03/11/19 07:28 Chloride IV 10 mg/hr .Q6H40M AVILA 5 mls/hr Administration Protocol 15 MG/HR Lorazepam 0.5 mg 03/09/19 20:46 03/09/19 21:17 Ativan PO 0.5 mg DAILY PRN Administration ANXIETY Metolazone 5 mg 03/09/19 13:00 03/11/19 09:17 Zaroxolyn PO 03/12/19 12:59 5 mg DAILY AVILA Administration Metoprolol Succinate 12.5 mg 03/09/19 09:00 03/10/19 09:14 Toprol Xl PO 12.5 mg DAILY AVILA Administration PFSH Acute PFSH: Statuses (acute, chronic, etc) shown below reflect problem list status as previously entered and may not be historically accurate Medical History AAA (abdominal aortic aneurysm) (Acute) Anasarca (Acute) Anemia (Acute) CAD (coronary artery disease) (Acute) Cardiomyopathy (Acute) COPD (chronic obstructive pulmonary disease) (Acute) DVT (deep venous thrombosis) (Acute) Hyperlipidemia (Acute) Hypertension (Acute) Ischemic cardiomyopathy (Acute) Macrocytosis (Acute) Mediastinal mass (Acute) Single kidney (Acute) Surgical History S/P AAA repair (Acute) Family History Other CAD (coronary artery disease) Diabetes Social History Smoking and tobacco status: current every day smoker Alcohol intake: never Substance/Drug Use: never Caregiver/support person: Yes Lives independently: No Household members: family Housing: House Marital status: Vitals/I&O/Wt Last Vital Signs Temp 97.8 F 03/11/19 07:53 Pulse 66 03/11/19 11:21 Resp 29 H 03/11/19 07:53 BP 115/71 03/11/19 07:53 Pulse Ox 93 03/11/19 11:21 03/10/19 03/11/19 03/11/19 22:59 06:59 14:59 Intake Total 480 / 600 49.75 / 649.75 174.5 / 174.5 Output Total 225 / 450 Balance 255 / 150 49.75 / 199.75 174.5 / 174.5 Weight last 48 hrs Weight 192 lb Weight 187 lb 6.4 oz Weight 190 lb 3.2 oz Physical Exam Narrative: EXAM NARRATIVE: GENERAL: The patient is somewhat lethargic but oriented to place and person. She is tachypneic with a mild to moderate respiratory distress . HEENT: Mild pallor no icterus or lymphadenopathy. The pupils are reactant to light. Oral cavity: There are no mucous membrane lesions. Funduscopic examination: The fundus is not visualized NECK: Trachea appears to be central. No masses noted. No JVD or thyromegaly appreciated. No carotid bruit. [] RESPIRATORY: Chest is symmetrical. Breath sounds are heard bilaterally with scattered expiratory wheezing and coarse crackles. BREASTS: Deferred. [] HEART: The PMI is in the 5th left intercostals space just outside the midclavicular line. First heart sound is normal. Loud S2 soft S3. Short systolic murmur in the left sternal border. No diastolic murmurs. No peric ardial rub. ABDOMEN: No vessel pulsations or distention. No tenderness. No organomegaly appreciated. No abdominal bruit. Bowel sounds are normally heard. [] : Deferred. [] RECTAL: Deferred. [] LYMPHATIC: No lymphadenopathy noted in the neck or groin. [] EXTREMITIES: Features of anasarca. She has edema in all the dependent parts of the body-thoracic area, gluteal region, left arm and the leg. The leg swelling is less compared to the time of admission. MUSCULOSKELETAL: No acute joint deformities or swelling SKIN: There are no significant scars or skin rash noted. [] NEUROPSYCHIATRIC: The patient is alert and oriented x2. Patient is somewhat lethargic, chronically ill looking and currently using a BiPAP mask. Urinary Catheter Management^: [place]: Cath Placed During This Visit: no Data Micro: Micro: Microbiology 03/09/19 13:20 Urine Culture - Pr eliminary Urine,Clean Catch Yeast species Imaging^: Cardiac catheterization: My impression: She had the most recent cardiac authorization on 08/12/2017. The findings are as follows #1. Patent stented segment of the right coronary artery with a moderate diffused in-stent stenosis. #2. Left anterior descending artery showing moderate disease in the proximal first diagonal branch with a mild diffuse disease in the other vessels. #3. Mild diffuse disease in the left main, circumflex and the left anterior descending artery. #4 . mildly dilated left ventricle with a diminished ejection fraction of 40%. #5. At least moderate mitral regurgitation. No filling defects were noted. #6. Normal pulmonary artery pressures. #7. Diminished cardiac index of 1.9 #8 LVEDP of 10 mmHg Echo: My impression: The most recent echocardiogram on 08/09/2018 revealed Severe diffuse hypokinesia of the left ventricle with ejection fraction of 28%. Dilated left irregular cavity. Mild biatrial enlargement Thickened aortic and mitral valves. Features of the aortic valve sclerosis. Possible moderate eccentric mitral regurgitation. Axel-vc-mokntfhw tricuspid valve regurgitation. There is no pericardial effusion. There are no intracardiac masses. Pulmonary hypertension with estimated pulmonary artery peak systolic pressure of 74 mmHg Compared to the study from 08/27/2017, there is worsening of the LV systolic function and development of pulmonary hypertension CXR: My impression: Cardiomegaly with possible right lower lobe pneumonia/atelectasis. Bilateral pleural effusion, more so on the right side. Prominent pulmonary vascular markings. EKG^: EKG 1: My Interpretation: Sinus rhythm with frequent PVCs. Poor R wave progression. Nonspecific T wave changes. Nonspecific IVCD. A&P Assessment and plan (1) Acute on chronic systolic heart failure: Patient has severe left ventricular systolic dysfunction with a progressive increase in the BNP and worsening of the ejection fraction. She did not have any ischemia, based on the perfusion scan. She also has no chest pain. Optimizing the medical treatment would be the plan of action at this time. She is currently on 7.5 mics of dobutamine . I may not go up on the dose of this medication at this time. She already has some PVCs . There may be some improvement in the urine output. I may keep her on this medication for a total of 48 hours and then discontinue it. In view of her multiple comorbidities, her overall prognosis seems very poor at this time. Nephrology input would be appreciated Status: Acute Code(s): I50.23 - Acute on chronic systolic (congestive) heart failure (2) Nonischemic congestive cardiomyopathy: The LV ejection fraction has been progressively declining. The EF was around 40% in 2018 which went down to 28% last year and currently it is only around 10 to 15%. We will try to optimize the afterload. Status: Acute Code(s): I42.0 - Dilated cardiomyopathy (3) Severe pulmonary arterial systolic hypertension: The pulmonary artery peak systolic pressure was around 80 mmHg. In view of the severe LV systolic dysfunction and COPD, the treatment options are limited. We may try to optimize the treatable conditions Status: Acute Code(s): I27.21 - Secondary pulmonary arterial hypertension (4) AAA (abdominal aortic aneurysm): Patient had percutaneous repair of the AAA. Most recent CTA revealed no evidence of any endoleak. We will continue on the current management Status: Acute Qualifiers: Presence of rupture: without rupture Qualified Code(s): I71.4 - Abdominal aortic aneurysm, without rupture Code(s): I71.4 - Abdominal aortic aneurysm, without rupture (5) Decompensated COPD with exacerbation (chronic obstructive pulmonary disease): Patient is currently on BiPAP. Antibiotic treatment and optimizing the bronchodilators are appropriate. Management as per the primary. She has significant CO2 retention Status: Acute Code(s): J44.1 - Chronic obstructive pulmonary disease with (acute) exacerbation Additional A&P Information Her other problems are chronic anemia History of DVT History of dyslipidemia Chronic kidney disease Single kidney Iron extensive discussion with the patient's general house worker and other family members, regarding patient's present condition and prognosis from a cardiovascular standpoint. She has extremely poor prognosis at this point. This was understood by the family well. The family did not want any aggressive measures done at this point. However they are going to discuss with the patient about this and make a final decision about the CODE STATUS. We will continue to optimize her medical treatment at this point. Issues were also discussed with Dr. Reyes. Coding Level of Care Code Acute Power Switchboard Operator for Maria Eg Fwd Diagnoses Acute on chronic systolic heart failure I50.23 Nonischemic congestive cardiomyopathy I42.0 Severe pulmonary arterial systolic hypertension I27.21 AAA (abdominal aortic aneurysm) I71.4 Presence of rupture: without rupture Decompensated COPD with exacerbation (chronic obstructive pulmonary disease) J44.1
[2019-03-11] MEDS: DOBUTamine drip 500 MG/250 ML PREMIX 12.8 MG IV (11:39)
[2019-03-11 12:46] LABS: Troponin 5 2HR 63.96 ng/mL (0-10)
[2019-03-11 12:49] LABS: Troponin 5 2HR Delta -3.04 ABS# (0-10)
--- NOTE | 2019-03-11 12:55 | PC.NURSE ---
dr zaman examined pt, and determined that pt should be transferred to the icu due to poor diuresis (despite furosemide and dobutamine drips),and increase in ectopy .vs remain stable.3l o2 per nasal cannula.pt alert and awake.denies pain.ekg obtained,echo,abg,ct of chest as ordered.transferred to icu room 2 at approx 1030.report given.
[2019-03-11] MEDS: bumetanide 25 MG in empty flexible container 1 EACH 4 MG IV (13:50)
--- NOTE | 2019-03-11 15:23 | ECG_ITS ---
Measurements Intervals [place] Rate: 58 P: 66 [place]: 161 QRS: 112 QRSD: 183 T: -18 QT: 477 QTc: 470 SINUS BRADYCARDIA WITH OCCASIONAL VENTRICULAR PREMATURE COMPLEXES MARKED RIGHT AXIS DEVIATION [QRS AXIS > 100] INTRAVENTRICULAR CONDUCTION DELAY [130+ ms QRS DURATION] LATERAL MYOCARDIAL INFARCTION [40+ ms Q WAVE AND/OR ST/T ABNORMALITY IN I/aVL/V5/V6], OF INDETERMINATE AGE Compared to ECG 03/08/2019 23:03:21 Ventricular premature complex(es) now present Right-axis deviation now present Intraventricular conduction delay now present Sinus rhythm no longer present Left bundle-branch block no longer present Myocardial infarct finding still present Electronically Signed On 03-11-2019 16:29:52 LOCOMOTIVE MECHANIC by Bharath Lechuga M.D. [email or web address]
[2019-03-11] MEDS: nystatin 100,000 unit/mL UDC 5 mL 500000 UNIT PO ×2 (15:25→17:32)
[2019-03-11 15:39] LABS: Hematocrit 32.9 % (37.0-47.0); Hemoglobin 9.7 g/dL (11.5-15.3)
--- NOTE | 2019-03-11 15:53 | PC.SOCIAL ---
Pg 2 IMM Explained to pt & family Pg 2 IMM. Daughter verbally understands & signed. A copy was provided to daughter/pt. Signed, dated, & timed, then placed in chart.
--- NOTE | 2019-03-11 16:02 | PM.PN ---
Subjective Subjective: Interval history: This morning patient is still short of breath, continues to have generalized anasarca, continues to have bilateral lower extremity edema, she states states that she does not feel any better today, patient has only diuresed less than a liter since her admission, is on dobutamine and a Lasix drip, overall patient's prognosis is poor I had a detailed discussion with patient, , family members at bedside in terms of her goals of care. For now patient wants to remain a full code, is okay, and and is okay with elective intubation if required, and wants to continue all medical interventions for now, is considering hospice, and would like hospice to come by tomorrow to speak to her about the options. Given patient's worsening shortness of breath, worsening anasarca, patient was transferred to the intensive care unit, cardiology was consulted, nephrology was consulted Vitals/I&O/Wt Last Vital Signs Temp 97.8 F 03/11/19 07:53 Pulse 78 03/11/19 15:12 Resp 16 03/11/19 15:12 BP 150/76 03/11/19 13:00 Pulse Ox 97 03/11/19 15:12 03/11/19 03/11/19 03/11/19 06:59 14:59 22:59 Intake Total 49.75 / 649.75 174.5 / 174.5 Balance 49.75 / 199.75 174.5 / 174.5 Weight last 48 hrs Weight 87.09 kg Weight 85.003 kg Weight 86.273 kg Physical Exam Const: COMMON NORMALS: no apparent distress and oriented x3 HENMT: COMMON NORMALS: normocephalic HEAD & SCALP: normocephalic Neck/C-Spine: COMMON NORMALS: no JVD Resp: COMMON NORMALS: no retractions and no use of accessory muscles EFFORT & INSPECTION: Yes able to speak in complete sentences, Yes tachypneic and Yes respiratory distress AUSCULTATION: rhonchi Cardio: COMMON NORMALS: no JVD, regular rate, regular rhythm, S1 normal heart sound and S2 normal heart sound RATE: regular rate RHYTHM: regular rhythm HEART SOUNDS: S1 normal and S2 normal GI: COMMON NORMALS: normal to inspection, nondistended, normoactive bowel sounds, soft to palpation, non-tender, no hepatosplenomegaly, no masses and no bruits INSPECTION: Yes anasarca present PALPATION: Yes soft and Yes no hepatosplenomegaly Neuro: COMMON NORMALS: oriented x3 Psych: COMMON NORMALS: mental status grossly normal Skin: NARRATIVE SKIN EXAM: Bilateral 2+ pitting edema, generalized anasarca Urinary Catheter Management^: [place]: Cath Placed During This Visit: no Data : 03/11/19 15:20 03/11/19 04:43 Micro: Microbiology 03/09/19 13:20 Urine Culture - Preliminary Urine,Clean Catch Yeast species A&P Assessment and plan (1) Anasarca: Status: Acute Code(s): R60.1 - Generalized edema (2) Cardiomyopathy: Status: Acute Code(s): I42.9 - Cardiomyopathy, unspecified (3) Acute kidney injury: Status: Acute Code(s): N17.9 - Acute kidney failure, unspecified (4) Single kidney: Status: Acute Code(s): Z90.5 - Acquired absence of kidney (5) Congestive heart failure: Status: Acute Qualifiers: Heart failure chronicity: acute on chronic Heart failure type: unspecified Qualified Code(s): I50.9 - Heart failure, unspecified Code(s): I50.9 - Heart failure, unspecified (6) Anemia: Status: Acute Qualifiers: Anemia type: iron deficiency Iron deficiency anemia type: other iron deficiency Qualified Code(s): D50.8 - Other iron deficiency anemias Code(s): D64.9 - Anemia, unspecified Additional A&P Information Acute hypoxic hypercarbic respiratory failure secondary to acute flash pulmonary edema, and systolic heart failure -Patient transferred to the intensive care unit -On BiPAP -Diuresing with Demadex drip and metolazone -On dobutamin -Levophed as needed for hypotensive episodes -Hull catheter in place -Monitor lactic acids -Currently patient is a full code Cardiology is on consult and nephrology is on consult- -Patient is considering hospice anasarca : -Due to Systolic congestive heart failure 2/2 Ischemic cardiomyopathy -Urine output is lackluster Last LEXISCAN SPECT CARDIAC STRESS TEST ([id number]) 04/01/2018 1. Unremarkable Lexiscan infusion. 2. Nuclear imaging to follow. 3. Hypertension Old myocardial infarction versus scarring noted in basal to distal anterior and apical wall. This study is negative for ischemia. There appeared to be multiple wall motion abnormalities as defined above. EKG segment will be documented separately ECHOCARDIOGRAPHY, COMPLETE ([id number]) 08/09/2018 Severe diffuse hypokinesia of the left ventricle with ejection fraction of 28%. Dilated left irregular cavity with Mild biatrial enlargement, Mod TR, PASP- 74 mmhg CKD secondary to single functioning kidney along with cardiorenal syndrome. Holding nephrotoxic agents Creatinine 1.6 Treatment as above. Neurology on consult COPD exacerbation due to congestive heart failure exacerbation and active smoking: On BiPAP Duoneb round the clock, Budesonide BID. Anemia, hemoglobin 9.7, stable, will continue to monitor Previous history of DVT currently on Eliquis DVT prophylaxis: Not needed currently, she is on Eliquis Goals of care: Currently patient is a full code, considering hospice Cardiac renal diet Attestations Medical Necessity Statement*: Patient requires continued hospitalization for acute hypoxic respiratory failure, CHF exacerbation, anasarca, anemia Coding Level of Care Code Acute Technical Service Representative for [facility] Diagnoses Anasarca R60.1 Cardiomyopathy I42.9 Acute kidney injury N17.9 Single kidney Z90.5 Congestive heart failure I50.9 Heart failure chronicity: acute on chronic Heart failure type: unspecified Anemia D50.8 Anemia type: iron deficiency Iron deficiency anemia type: other iron deficiency
--- NOTE | 2019-03-11 18:03 | P.CONIM_ITS ---
Providers/Reason For Consult Consulting Physican/Specialty*: Podaralla/Telenephrology Reason for Consult*: Fluid management, Renal failure Requesting Physcian: Fabian Reyes Attending Physician: Fabian Reyes MD History of Present Illness History of Present Illness Aliya Gustafson is a 78 year old female presented with increaased lower extremity edema, shortness of breath, weight gain for past few weeks. Her diuretics were readjusted but still no significant improvement. Started on lasix drip. As she was is respiratory distress, she was moved to icu. Nephrology was consulted for fluid management in the setting of renal failure. No nausea,vomiting or diarrhea Review of Systems General: Reports: ROS unobtainable due to mental status Card: Reports: edema, swelling of feet/ankles and shortness of breath when lying down Resp: Reports: shortness of breath Meds/Allergies Home Medications and Allergies Home Medications Medication Instructions Recorded Confirmed Type albuterol sulfate 2.5 mg INHALATION Q6H PRN 03/08/19 03/08/19 History apixaban 5 mg tablet 5 mg PO BID 03/08/19 03/08/19 History bumetanide 2 mg PO DAILY 03/08/19 03/08/19 History furosemide 80 mg tablet 80 mg PO TID tab 03/08/19 03/08/19 History lorazepam 0.5 mg tablet 0.5 mg PO QDAY PRN 03/08/19 03/08/19 History nitroglycerin 0.4 mg sublingual 0.4 mg SUBLINGUAL Q5M PRN 03/08/19 03/08/19 History tablet potassium chloride 20 meq PO DAILY 03/08/19 03/08/19 History ropinirole 1 - 2 mg PO DAILY 03/08/19 03/08/19 History vitamin B complex 1 tab PO QDAY 03/08/19 03/08/19 History Allergies Allergy/AdvReac Type Severity Reaction Status Date / Time No Known Allergies Allergy Unverified 03/08/19 14:43 Current Medications Current Medications Generic Name Dose Route Start Last Admin Trade Name Freq PRN Reason Stop Dose Admin Acetaminophen 650 mg 03/09/19 23:56 03/10/19 00:10 Tylenol PO 650 mg Q6H PRN Administration MILD PAIN Albuterol/Ipratropium 3 ml 03/09/19 15:00 03/11/19 15:11 Duoneb INHALATION 3 ml Q6H.RESPIRATORY AVILA Administration Apixaban 5 mg 03/09/19 09:00 03/11/19 17:32 Eliquis PO 5 mg BID AVILA Administration Atorvastatin Calcium 20 mg 03/09/19 21:00 03/10/19 21:48 Lipitor PO 20 mg BEDTIME AVILA Administration Bisacodyl 10 mg 03/09/19 12:58 03/11/19 09:17 Dulcolax PO 10 mg DAILY PRN Administration CONSTIPATION Budesonide 0.5 mg 03/09/19 20:00 03/11/19 09:23 Pulmicort INHALATION Not Given BID.RESPIRATORY AVILA Famotidine 20 mg 03/09/19 13:00 03/11/19 13:07 Pepcid Inj IVP 20 mg Q12H AVILA Administration Dobutamine HCl/Dextrose 500 mg in 250 mls @ 12.75 mls/hr 03/10/19 14:15 03/11/19 11:39 Dobutamine Drip IV 5 mcg/kg/min .[id number] AVILA 12.8 mls/hr Administration 5 MCG/KG/MIN Bumetanide 25 mg/ N/A 100 mls @ 4 mls/hr 03/11/19 13:45 03/11/19 13:50 IV 1 mg/hr .Q24H AVILA 4 mls/hr Administration 1 MG/HR Lorazepam 0.5 mg 03/09/19 20:46 03/09/19 21:17 Ativan PO 0.5 mg DAILY PRN Administration ANXIETY Metolazone 5 mg 03/09/19 13:00 03/11/19 09:17 Zaroxolyn PO 03/12/19 12:59 5 mg DAILY AVILA Administration Metoprolol Succinate 12.5 mg 03/09/19 09:00 03/10/19 09:14 Toprol Xl PO 12.5 mg DAILY AVILA Administration Nystatin 500,000 unit 03/11/19 15:15 03/11/19 17:32 Nystatin PO 500,000 unit QID AVILA Administration Spironolactone 25 mg 03/11/19 11:05 03/11/19 13:03 Aldactone PO Not Given DAILY AVILA PFSH Acute PFSH: Statuses (acute, chronic, etc) shown below reflect problem list status as previously entered and may not be historically accurate Medical History AAA (abdominal aortic aneurysm) (Acute) Acute on chronic systolic heart failure (Acute) Anasarca (Acute) Anemia (Acute) CAD (coronary artery disease) (Acute) Cardiomyopathy (Acute) COPD (chronic obstructive pulmonary disease) (Acute) Decompensated COPD with exacerbation (chronic obstructive pulmonary disease) (Acute) DVT (deep venous thrombosis) (Acute) Hyperlipidemia (Acute) Hypertension (Acute) Ischemic cardiomyopathy (Acute) Macrocytosis (Acute) Mediastinal mass (Acute) Nonischemic congestive cardiomyopathy (Acute) Severe pulmonary arterial systolic hypertension (Acute) Single kidney (Acute) Surgical History S/P AAA repair (Acute) Family History Other CAD (coronary artery disease) Diabetes Social History Smoking and tobacco status: current every day smoker Alcohol intake: never Substance/Drug Use: never Caregiver/support person: Yes Lives independently: No Household members: family Housing: House Marital status: Vitals/I&O/Wt Last Vital Signs Temp 97.8 F 03/11/19 07:53 Pulse 74 03/11/19 16:00 Resp 18 03/11/19 16:00 BP 127/79 03/11/19 16:00 Pulse Ox 93 03/11/19 16:00 03/11/19 03/11/19 03/11/19 06:59 14:59 22:59 Intake Total 49.75 / 649.75 174.5 / 174.5 100 / 274.5 Output Total 1000 / 1000 Balance 49.75 / 199.75 174.5 / 174.5 -900 / -725.5 Weight last 48 hrs Weight 87.09 kg Weight 85.003 kg Weight 86.273 kg Physical Exam Const: EXAM LIMITATIONS: altered mental status OTHER: in respiratory distress Resp: AUSCULTATION: rales Cardio: COMMON NORMALS: S1 normal heart sound and S2 normal heart sound HEART SOUNDS: S1 normal and S2 normal GI: AUSCULTATION: Yes normoactive bowel sounds Extremity: OTHER: peripheral edema+ Skin: COMMON NORMALS: no rashes or lesions noted GENERAL SKIN EXAM: no rashes or lesions noted Urinary Catheter Management^: [place]: Cath Placed During This Visit: no Data Micro: Micro: Microbiology 03/09/19 13:20 Urine Culture - Pr eliminary Urine,Clean Catch Yeast species A&P Assessment and plan (1) Anasarca: Will start bumex 1mg/hr. No indication for any ultrafiltration at this time. D/w with pt's ,daughter,hospitalist & television program director regarding the plan.She has poor prognosis. Probably her code status needs to be re-addressed by primary team Status: Acute Code(s): R60.1 - Generalized edema (2) Acute kidney injury: Will monitor kidney function closely while she is on bumex drip Status: Acute Code(s): N17.9 - Acute kidney failure, unspecified (3) Hypertension: Start pressors if MAP below 60 Status: Acute Qualifiers: Hypertension type: essential hypertension Qualified Code(s): I10 - Essential (primary) hypertension Code(s): I10 - Essential (primary) hypertension (4) Anemia: follow hb closely Status: Acute Qualifiers: Anemia type: iron deficiency Iron deficiency anemia type: other iron deficiency Qualified Code(s): D50.8 - Other iron deficiency anemias Code(s): D64.9 - Anemia, unspecified Consult Attestations Medical Necessity Statement: Anasarca Coding Level of Care Code Acute Machine Bunch Maker for [facility] Fwd Diagnoses Anasarca R60.1 Acute kidney injury N17.9 Hypertension I10 Hypertension type: essential hypertension Anemia D50.8 Anemia type: iron deficiency Iron deficiency anemia type: other iron deficiency
[2019-03-11] MEDS: budesonide 0.5 mg/2 mL Neb INHALATION (20:33)
[2019-03-11] MEDS: atorvastatin 40 mg Tablet 20 MG PO (23:35)
[2019-03-12] VITALS (42 sets, daily range): BP systolic 95–160; BP diastolic 47–96; PULSE 55–100; RESP 15–30; TEMP 36.3–36.6; O2SAT 85–99; BMI 32.1
[2019-03-12 00:13] LABS: Basophils % 0.2 %; Eosinophils % 0.2 %; Hematocrit 30.9 % (37.0-47.0); Hemoglobin 9.5 g/dL (11.5-15.3); Lymphocytes # 0.5 10^3/uL (0.8-4.8); Lymphocytes % 8.5 %; Mean Corpuscular HGB Conc 30.7 g/dL (30.0-36.0); Mean Corpuscular Hemoglobin 27.9 pg (28.0-34.0); Mean Corpuscular Volume 90.9 fL (81-99); Mean Platelet Volume 10.6 fL (7.4-10.4); Monocytes # 0.6 10^3/uL (0.2-0.9); Monocytes % 10.7 %; Neutrophils # 4.7 10^3/uL (1.8-7.7); Neutrophils % 80.1 %; Nucleated Red Blood Cells % 0 %; Platelet Count 114 10^3/cmm (130-400); Red Cell Distribution Width 18.7 % (12.1-15.1); White Blood Count 5.9 10^3/uL (4.0-10.0)
[2019-03-12 00:30] LABS: Alanine Aminotransferase 10 U/L (0-33); Albumin Level 2.9 g/dL (3.5-5.2); Alkaline Phosphatase 112 IU/L (35-105); Anion Gap 12.5 (5-19); Aspartate Amino Transferase 15 U/L (0-32); Blood Urea Nitrogen 47 mg/dL (8-23); Calcium 10.7 mg/dL (8.5-10.5); Carbon Dioxide 33 mmol/L (22-29); Chloride 94 mmol/L (98-107); Globulin 2.9 g/dL (1.3-4.6); Glucose 134 mg/dL (74-106); Potassium 3.5 mmol/L (3.5-5.1); Sodium 136 mmol/L (136-145); Total Bilirubin 0.6 mg/dL (0.15-1.2); Total Protein 5.8 g/dL (6.6-8.7)
[2019-03-12] MEDS: famotidine 20 mg/2 mL INJ IVP ×2 (02:37→13:24)
[2019-03-12] MEDS: ipratropium-albuterol 3 mL Neb INHALATION ×4 (03:01→20:10)
[2019-03-12] MEDS: LORazepam 0.5 mg Tablet PO (03:26)
[2019-03-12 04:18] LABS: ABG PCO2 72.9 mmHg (35-45); ABG PH Result 7.32 (7.35-7.45); Arterial Blood Gas Hematocrit 31.1 % (37-47); Base Excess ABG 9.1 mmol/L (-2.0-2.0); Blood Gas Allen Test Pos; Blood Gas Sample Site Radial, right; Blood Gas Sample Type Arterial; HCO3 ABG 37.3 mmol/L (22-26); Oxygen Device BIPAP; PO2 ABG 96.8 mmHg (80.0-100.0)
[2019-03-12 05:00] LABS: Basophils % 0.2 %; Eosinophils % 0.2 %; Hemoglobin 9.8 g/dL (11.5-15.3); Lymphocytes # 0.5 10^3/uL (0.8-4.8); Mean Corpuscular HGB Conc 30.6 g/dL (30.0-36.0); Mean Corpuscular Hemoglobin 28.7 pg (28.0-34.0); Mean Corpuscular Volume 93.6 fL (81-99); Mean Platelet Volume 10.6 fL (7.4-10.4); Monocytes # 0.6 10^3/uL (0.2-0.9); Monocytes % 11.3 %; Neutrophils # 4.5 10^3/uL (1.8-7.7); Neutrophils % 80.1 %; Nucleated Red Blood Cells % 0 %; Platelet Count 125 10^3/cmm (130-400); Red Blood Count 3.42 10^6/uL (4.1-5.3); Red Cell Distribution Width 18.9 % (12.1-15.1); White Blood Count 5.7 10^3/uL (4.0-10.0)
[2019-03-12 05:35] LABS: Procalcitonin 0.09 ng/mL (0-0.5)
[2019-03-12 05:38] LABS: Alanine Aminotransferase 10 U/L (0-33); Albumin Level 2.8 g/dL (3.5-5.2); Alkaline Phosphatase 108 IU/L (35-105); Anion Gap 16.4 (5-19); Aspartate Amino Transferase 16 U/L (0-32); Blood Urea Nitrogen 39 mg/dL (8-23); Calcium 10.8 mg/dL (8.5-10.5); Carbon Dioxide 31 mmol/L (22-29); Chloride 93 mmol/L (98-107); Globulin 2.8 g/dL (1.3-4.6); Glucose 104 mg/dL (74-106); Potassium 3.4 mmol/L (3.5-5.1); Sodium 137 mmol/L (136-145); Total Bilirubin 0.8 mg/dL (0.15-1.2); Total Protein 5.6 g/dL (6.6-8.7)
--- NOTE | 2019-03-12 07:00 | XRR_ITS ---
PROCEDURE INFORMATION: Exam: XR Chest, 1 View Exam date and time: 03/12/2019 8:30 AM Age: 78 years old Clinical indication: Shortness of breath; Additional info: SOB TECHNIQUE: Imaging protocol: XR of the chest Views: 1 view. COMPARISON: CR (CHEST, ) 03/11/2019 10:24 AM FINDINGS: Lungs: There is mild improved aeration. Pulmonary vascular congestion appears stable to minimally decreased. Interval decrease of patchy right midlung opacity. Streaky bibasilar opacities are stable to minimally decreased. Pleural space: Mild interval decrease of bilateral pleural effusions. Heart/Mediastinum: The heart remains enlarged and unchanged. Vasculature: Atherosclerotic calcifications are present within the aortic arch. Bones/joints: Degenerative changes of the spine and bilateral shoulders are again noted. XR/XR chest 1V portable [id number] IMPRESSION: 1. Mild improved aeration with stable to slight interval decrease of pulmonary vascular congestion and bilateral pleural effusions. 2. Interval decrease of patchy right midlung opacity. Streaky bibasilar opacities are stable to minimally decreased, likely reflecting atelectasis. Early consolidation remains a consideration.
[2019-03-12] MEDS: budesonide 0.5 mg/2 mL Neb INHALATION ×2 (08:23→20:10)
[2019-03-12] MEDS: DOBUTamine drip 500 MG/250 ML PREMIX 12.8 MG IV ×2 (09:30→10:51)
[2019-03-12] MEDS: apixaban 5 mg Tablet PO ×2 (09:31→17:23)
[2019-03-12] MEDS: nystatin 100,000 unit/mL UDC 5 mL 500000 UNIT PO ×2 (09:31→13:30)
[2019-03-12] MEDS: spironolactone 25 mg Tablet PO (09:32)
[2019-03-12] MEDS: metOLazone 5 MG Tablet PO (09:32)
[2019-03-12] MEDS: bumetanide 25 MG in empty flexible container 1 EACH 4 MG IV (10:50)
--- NOTE | 2019-03-12 11:32 | PC.CHAP ---
Pastoral Care Encounter/Spiritual Assessment Type of Contact [] Declined head wrestling coach visit [] Patient/Family/Request visit [] Outpatient visit [] Follow-up visit [] Physician referral [] Code/Alert [x] Routine visit [] Staff referral [] Actively dying [x] Patient sleeping [x] Family support [] [] Out of room [] Palliative care [] [] Receiving care in room [] Pre-surgical visit [] Trauma [] Long length of stay [] ICU visit [] Other: Relational/Emotional Strength [x] Patient feels connected with others/family/visitors/staff [] Distress [] Loneliness/isolation [] Abandonment Spirituality of Patient [x] Person of Elvia [] Attends Nondenominational of their Elvia [x] Believes in Prayer [x] Reads Bible or Protestant materials [] There are Spiritual issues to be addressed Heel Molder Interventions [x] Prayer [x] Active listening [x] Non-anxious presence [x] Spiritual/emotional support [] Crisis/trauma care [x] Spiritual counseling [] Bereavement support [] Provided bereavement packet [] Provided Bible/devotional materials [] Provided toy/stuffed animal, coloring book to patient or family member [] Provided Communion [] Anointing/[place] [] Salvation [x] Completed spiritual assessment [] Other: Impact on Illness or Injury [] Angry [] Fearful [] Anxious [] Often cries [] Exhaustion [] Unable to work [] Unable to attend hindu [] Unable to walk/stand [] Unable to read [] Unable to drive [] Unable to eat/drink [] Unable to sleep [] Unable to be with family [] Patient intubated [] Other: Summary Pt. was asleep but Heel Molder spoe with her and he stood in for her for prayed. They are people of elvia, but she is very weak, Time spent with patient 15 min.
--- NOTE | 2019-03-12 11:55 | PM.PN ---
Subjective Subjective: Interval history: I am seeing her in follow up for her renal failure and fluid management. Responding well to bumex drip. Shortness of breath improving. No nausea or vomiting Medications: Reviewed: Yes Vitals/I&O/Wt Last Vital Signs Temp 97.8 F 03/12/19 00:11 Pulse 88 03/12/19 07:40 Resp 23 H 03/12/19 07:36 BP 130/67 03/12/19 05:00 Pulse Ox 98 03/12/19 07:40 03/11/19 03/12/19 03/12/19 22:59 06:59 14:59 Intake Total 212 / 386.5 255.28 / 255.28 Output Total 1999 / 1999 1000 / 3000 Balance -1788 / -1613.5 -1000 / -2613.5 255.28 / 255.28 Weight last 48 hrs Weight 87.09 kg Physical Exam Const: COMMON NORMALS: no apparent distress GENERAL APPEARANCE: cooperative and comfortable ORIENTATION/CONSCIOUSNESS: Yes awake Resp: AUSCULTATION: crackles Cardio: COMMON NORMALS: S1 normal heart sound and S2 normal heart sound HEART SOUNDS: S1 normal and S2 normal GI: AUSCULTATION: Yes normoactive bowel sounds Extremity: GENERAL: Yes edema Skin: COMMON NORMALS: no rashes or lesions noted GENERAL SKIN EXAM: no rashes or lesions noted Urinary Catheter Management^: [place]: Cath Placed During This Visit: no Data : 03/12/19 04:15 03/12/19 04:15 Micro: Microbiology 03/09/19 13:20 Urine Culture - Final Urine,Clean Catch Roseanne albicans A&P Assessment and plan (1) Anasarca: Responding well to bumex drip, excellent urine output, probably we can switch to po bumex in next 24-48hrs to come up with outpt regimen Status: Acute Code(s): R60.1 - Generalized edema (2) Acute kidney injury: Monitor kidney function closely while we are adjusting diuretics Status: Acute Code(s): N17.9 - Acute kidney failure, unspecified (3) Hypertension: BP under control Status: Acute Qualifiers: Hypertension type: essential hypertension Qualified Code(s): I10 - Essential (primary) hypertension Code(s): I10 - Essential (primary) hypertension (4) Anemia: Follow hb closely Status: Acute Qualifiers: Anemia type: iron deficiency Iron deficiency anemia type: other iron deficiency Qualified Code(s): D50.8 - Other iron deficiency anemias Code(s): D64.9 - Anemia, unspecified Attestations Medical Necessity Statement*: Anasarca, renal failure Coding Level of Care Code Acute Ring Attacher for [facility] Fwd Diagnoses Anasarca R60.1 Acute kidney injury N17.9 Hypertension I10 Hypertension type: essential hypertension Anemia D50.8 Anemia type: iron deficiency Iron deficiency anemia type: other iron deficiency
--- NOTE | 2019-03-12 13:17 | PM.PN ---
Subjective Subjective: Interval history: Patient is feeling better. She received 48 hours of IV dobutamine fusion. Her urine output has significantly improved. She seems to be more alert and awake today. Still has a generalized weakness. Dependent edema is persisting but improving. No fever or chills. Medications: Reviewed: Yes Medication Review Details: Current Medications Acetaminophen (Tylenol) 650 mg PO Q6H PRN PRN Reason: MILD PAIN Last Admin: 03/10/19 00:10 Dose: 650 mg Documented by: Albuterol/Ipratropium (Duoneb) 3 ml INHALATION Q6H.RESPIRATORY AVILA Last Admin: 03/12/19 08:23 Dose: 3 ml Documented by: Apixaban (Eliquis) 5 mg PO BID AVILA Last Admin: 03/12/19 09:31 Dose: 5 mg Documented by: Atorvastatin Calcium (Lipitor) 20 mg PO BEDTIME AVILA Last Admin: 03/11/19 23:35 Dose: 20 mg Documented by: Bisacodyl (Dulcolax) 10 mg PO DAILY PRN PRN Reason: CONSTIPATION Last Admin: 03/11/19 09:17 Dose: 10 mg Documented by: Budesonide (Pulmicort) 0.5 mg INHALATION BID.RESPIRATORY AVILA Last Admin: 03/12/19 08:23 Dose: 0.5 mg Documented by: Famotidine (Pepcid Inj) 20 mg IVP Q12H AVILA Last Admin: 03/12/19 02:37 Dose: 20 mg Documented by: Dobutamine HCl/Dextrose (Dobutamine Drip) 500 mg in 250 mls @ 12.75 mls/hr IV .[id number] AVILA Last Admin: 03/12/19 10:51 Dose: 5 mcg/kg/min, 12.8 mls/hr Documented by: Norepinephrine Bitartrate 4 mg (/ Dextrose) 254 mls @ 0 mls/hr IV .Q0M AVILA; Protocol Bumetanide 25 mg/ N/A 100 mls @ 4 mls/hr IV .Q24H AVILA Last Admin: 03/12/19 10:50 Dose: 1 mg/hr, 4 mls/hr Documented by: Potassium Chloride (K-Chip) 40 meq in 100 mls @ 25 mls/hr IV ONCE ONE Stop: 03/12/19 17:02 Lorazepam (Ativan) 0.5 mg PO DAILY PRN PRN Reason: ANXIETY Last Admin: 03/12/19 03:26 Dose: 0.5 mg Documented by: Magnesium Hydroxide (Milk Of Magnesia) 30 ml PO DAILY PRN PRN Reason: CONSTIPA Metoprolol Succinate (Toprol Xl) 12.5 mg PO DAILY [facility] Last Admin: 03/10/19 09:14 Dose: 12.5 mg Documented by: Nystatin (Nystatin) 500,000 unit PO QID [facility] Last Admin: 03/12/19 09:31 Dose: 500,000 unit Documented by: Ondansetron HCl (Zofran) 4 mg PO Q8H PRN PRN Reason: NAUSEA AND VOMITING Spironolactone (Aldactone) 25 mg PO DAILY [facility] Last Admin: 03/12/19 09:32 Dose: 25 mg Documented by: Vitals/I&O/Wt Last Vital Signs Temp 97.8 F 03/12/19 00:11 Pulse 88 03/12/19 07:40 Resp 23 H 03/12/19 07:36 BP 130/67 03/12/19 05:00 Pulse Ox 98 03/12/19 07:40 03/11/19 03/12/19 03/12/19 22:59 06:59 14:59 Intake Total 212 / 386.5 255.28 / 255.28 Output Total 1999 1000 / 3000 Balance -1788 / -1613.5 -1000 / -2613.5 255.28 / 255.28 Weight last 48 hrs Weight 192 lb Physical Exam Narrative: EXAM NARRATIVE: GENERAL: The patient is somewhat lethargic but oriented to place and person. Not in any distress HEENT: Moderate pallor no icterus or lymphadenopathy. The pupils are reactant to light. Oral cavity: There are no mucous membrane lesions. NECK: Trachea appears to be central. No masses noted. Prominent neck veins. No thyromegaly appreciated. No carotid bruit. RESPIRATORY: Chest is symmetrical. Breath sounds are heard bilaterally with scattered expiratory wheezing and coarse crackles. No evidence of consolidation BREASTS: Deferred. HEART: The PMI is in the 5th left intercostals space just outside the midclavicular line. First heart sound is normal. Loud S2 soft S3. Short systolic murmur in the left sternal border. No diastolic murmurs. No pericardial rub. ABDOMEN: No vessel pulsations or distention. No tenderness. No organomegaly appreciated. No abdominal bruit. Bowel sounds are normally heard. : Deferred. RECTAL: Deferred. LYMPHATIC: No lymphadenopathy noted in the neck or groin. EXTREMITIES: Features of anasarca. She has edema in all the dependent parts of the body-thoracic area, gluteal region, left arm and the leg. 2+ pitting edema of the lower extremities MUSCULOSKELETAL: No acute joint deformities or swelling SKIN: There are no significant scars or skin rash noted. NEUROPSYCHIATRIC: The patient is alert and oriented x2. Patient is somewhat lethargic, chronically ill looking and currently using oxygen by nasal cannula, 6 L/min Urinary Catheter Management^: Hull: Cath Placed During This Visit: no Data : 03/12/19 04:15 03/12/19 04:15 Other Labs: Abnormal lab results 03/11/19 03/11/19 03/12/19 Range/Units 15:20 15:20 00:09 RBC 3.40 L (4.1-5.3) 10^6/uL Hgb 9.7 L 9.5 L (11.5-15.3) g/dL Hct 32.9 L 30.9 L (37.0-47.0) % MCH 27.9 L (28.0-34.0) pg RDW 18.7 H (12.1-15.1) % Plt Count 114 L (130-400) 10^3/cmm MPV 10.6 H (7.4-10.4) fL Lymph # (Auto) 0.5 L (0.8-4.8) 10^3/uL ABG pH (7.35-7.45) ABG pCO2 (35-45) mmHg ABG HCO3 (22-26) mmol/L ABG Base Excess (-2.0-2.0) mmol/L Hematocrit (37-47) % Potassium (3.5-5.1) mmol/L Chloride (98-107) mmol/L Carbon Dioxide (22-29) mmol/L BUN (8-23) mg/dL Creatinine (0.5-0.9) mg/dL Glucose (74-106) mg/dL Calcium (8.5-10.5) mg/dL Alkaline Phosphatase (35-105) IU/L Troponin I 6 Hour 61.60 H (0-10) ng/L Troponin I Hi Sens Del -5.40 L (0-12) ng/L Total Protein (6.6-8.7) g/dL Albumin (3.5-5.2) g/dL 03/12/19 03/12/19 03/12/19 Range/Units 00:09 04:00 04:15 RBC 3.42 L (4.1-5.3) 10^6/uL Hgb 9.8 L (11.5-15.3) g/dL Hct 32.0 L (37.0-47.0) % MCH (28.0-34.0) pg RDW 18.9 H (12.1-15.1) % Plt Count 125 L (130-400) 10^3/cmm MPV 10.6 H (7.4-10.4) fL Lymph # (Auto) 0.5 L (0.8-4.8) 10^3/uL ABG pH 7.32 L (7.35-7.45) ABG pCO2 72.9 H* (35-45) mmHg ABG HCO3 37.3 H (22-26) mmol/L ABG Base Excess 9.1 H (-2.0-2.0) mmol/L Hematocrit 31.1 L (37-47) % Potassium (3.5-5.1) mmol/L Chloride 94 L (98-107) mmol/L Carbon Dioxide 33 H (22-29) mmol/L BUN 47 H (8-23) mg/dL Creatinine 1.7 H (0.5-0.9) mg/dL Glucose 134 H (74-106) mg/dL Calcium 10.7 H (8.5-10.5) mg/dL Alkaline Phosphatase 112 H (35-105) IU/L Troponin I 6 Hour (0-10) ng/L Troponin I Hi Sens Del (0-12) ng/L Total Protein 5.8 L (6.6-8.7) g/dL Albumin 2.9 L (3.5-5.2) g/dL 03/12/19 Range/Units 04:15 RBC (4.1-5.3) 10^6/uL Hgb (11.5-15.3) g/dL Hct (37.0-47.0) % MCH (28.0-34.0) pg RDW (12.1-15.1) % Plt Count (130-400) 10^3/cmm MPV (7.4-10.4) fL Lymph # (Auto) (0.8-4.8) 10^3/uL ABG pH (7.35-7.45) ABG pCO2 (35-45) mmHg ABG HCO3 (22-26) mmol/L ABG Base Excess (-2.0-2.0) mmol/L Hematocrit (37-47) % Potassium 3.4 L (3.5-5.1) mmol/L Chloride 93 L (98-107) mmol/L Carbon Dioxide 31 H (22-29) mmol/L BUN 39 H (8-23) mg/dL Creatinine 1.7 H (0.5-0.9) mg/dL Glucose (74-106) mg/dL Calcium 10.8 H (8.5-10.5) mg/dL Alkaline Phosphatase 108 H (35-105) IU/L Troponin I 6 Hour (0-10) ng/L Troponin I Hi Sens Del (0-12) ng/L Total Protein 5.6 L (6.6-8.7) g/dL Albumin 2.8 L (3.5-5.2) g/dL Micro: Microbiology 03/09/19 13:20 Urine Culture - Final Urine,Clean Catch Roseanne albicans A&P Assessment and plan (1) Acute on chronic systolic heart failure: Patient has severe left ventricular systolic dysfunction with a progressive increase in the BNP and worsening of the ejection fraction. She did not have any ischemia, based on the perfusion scan. She also has no chest pain. She received just 48 hours of dobutamine fusion. At this point, I may discontinue the dobutamine. Will watch her clinical response. May continue the Bumex drip. Repeat BMP in the morning Status: Acute Code(s): I50.23 - Acute on chronic systolic (congestive) heart failure (2) Nonischemic congestive cardiomyopathy: The LV ejection fraction has been progressively declining. The EF was around 40% in 2018 which went down to 28% last year and currently it is only around 10 to 15%. We will try to optimize the afterload. Status: Acute Code(s): I42.0 - Dilated cardiomyopathy (3) Severe pulmonary arterial systolic hypertension: The pulmonary artery peak systolic pressure was around 80 mmHg. In view of the severe LV systolic dysfunction and COPD, the treatment options are limited. Continue on the current management Status: Acute Code(s): I27.21 - Secondary pulmonary arterial hypertension (4) AAA (abdominal aortic aneurysm): Patient had percutaneous repair of the AAA. Most recent CTA revealed no evidence of any endoleak. We will continue on the current management Status: Acute Qualifiers: Presence of rupture: without rupture Qualified Code(s): I71.4 - Abdominal aortic aneurysm, without rupture Code(s): I71.4 - Abdominal aortic aneurysm, without rupture (5) Decompensated COPD with exacerbation (chronic obstructive pulmonary disease): We will continue to optimize the bronchodilator treatment Status: Acute Code(s): J44.1 - Chronic obstructive pulmonary disease with (acute) exacerbation Additional A&P Information Her other problems are chronic anemia History of DVT History of dyslipidemia Chronic kidney disease Single kidney Hypokalemia Iron extensive discussion with the patient's assistant housekeeping manager and other family members, regarding patient's present condition and prognosis from a cardiovascular standpoint. She has extremely poor prognosis at this point. This was understood by the family well. The family did not want any aggressive measures done at this point. However they are going to discuss with the patient about this and make a final decision about the CODE STATUS. We will continue to optimize her medical treatment at this point. Issues were also discussed with Dr. Reyes. at this point is wanting her to be full code. Depending on her status tomorrow, he may make a decision as to whether to continue treatment or go home on hospice In the meanwhile we will continue the other medications. The hypokalemia need to be corrected. Attestations Medical Necessity Statement*: Patient requires continued hospital stay for close monitoring and further management Coding Level of Care Code Acute Animal Feeder for Jhonny Fwd Diagnoses Acute on chronic systolic heart failure I50.23 Nonischemic congestive cardiomyopathy I42.0 Severe pulmonary arterial systolic hypertension I27.21 AAA (abdominal aortic aneurysm) I71.4 Presence of rupture: without rupture Decompensated COPD with exacerbation (chronic obstructive pulmonary disease) J44.1
[2019-03-12] MEDS: potassium chloride premix 40 MEQ/100 ML PREMIX 25 MEQ IV (13:29)
[2019-03-12] MEDS: acetaminophen 325 mg Tablet 650 MG PO (14:41)
--- NOTE | 2019-03-12 18:03 | PM.PN ---
Subjective Subjective: Interval history: This morning patient, , family members are at bedside I had a long discussion about patient's goals of care, currently patient wants to continue fighting, and remains a full code, however patient and family are still considering hospice depending on how she does here in the hospital. Patient and have already met with hospice, and are still undecided. Patient continues to feel short of breath, remains bedbound, weak, frail, poor appetite, requires BiPAP overnight, intermittent BiPAP during the day, up to 6 L nasal cannula during the day. I had a lengthy discussion with patient and family about her ischemic cardiomyopathy, acute renal failure, acute on chronic respiratory failure, poor functional status, weakness, deconditioning. I advised patient and family that she will likely need to go to an assisted intermediate if she wants to continue medical interventions given her significant weakness and deconditioning. Options about going home include home with hospice, but I advised against going home with home health care as patient is so weak, frail, fatigued, bedbound, her care is 24 hours which family cannot provide. I advised patient and family that she has a high risk of morbidity and mortality in the near future, high risk of readmission, high risk of invasive interventions. I advised patient and family that continuing medical interventions would require extensive visits to cardiology, nephrology, pulmonary, monitoring kidney function, cardiac function, frequent admissions to the hospital for acute on chronic respiratory failure. I advised patient that I am there with her if she wants to continue to fight. Hospice option would emphasize quality of life, she could be at home, with her grandkids, and she could spend the rest of the time she has remaining with family, and would emphasize a quality of life and comfort. In the afternoon, patient was taken off dobutamine, patient has become much more confused, lethargic and short of breath. Patient remains a full code, I fear patient is a high risk of intubation, high risk of invasive interventions in a poorly functional status person, patient and family are aware. Vitals/I&O/Wt Last Vital Signs Temp 97.4 F L 03/12/19 16:00 Pulse 60 03/12/19 16:00 Resp 15 03/12/19 16:00 BP 117/56 03/12/19 16:00 Pulse Ox 99 03/12/19 16:00 03/12/19 03/12/1920 06:59 14:59 22:59 Intake Total 606.907 / 606.907 Output Total 1000 / 3000 675 / 675 Balance -1000 / -2613.5 606.907 / 606.907 -675 / -68.093 Weight last 48 hrs Weight 87.09 kg Physical Exam Const: COMMON NORMALS: no apparent distress and oriented x3 GENERAL APPEARANCE: in distress, anxious and grossly edematous NUTRITIONAL APPEARANCE: obese ORIENTATION/CONSCIOUSNESS: Yes awake, Yes oriented to person and Yes oriented to place HENMT: COMMON NORMALS: normocephalic HEAD & SCALP: normocephalic Neck/C-Spine: COMMON NORMALS: no JVD Resp: COMMON NORMALS: normal respiratory effort, no retractions and no use of accessory muscles EFFORT & INSPECTION: Yes able to speak in complete sentences, Yes tachypneic, Yes respiratory distress, Yes labored and Yes retractions AUSCULTATION: rhonchi and wheezes Cardio: COMMON NORMALS: no JVD, regular rate, regular rhythm, S1 normal heart sound and S2 normal heart sound RATE: regular rate RHYTHM: regular rhythm HEART SOUNDS: S1 normal and S2 normal GI: COMMON NORMALS: normal to inspection, nondistended, normoactive bowel sounds, soft to palpation, non-tender, no hepatosplenomegaly, no masses and no bruits INSPECTION: Yes anasarca present PALPATION: Yes soft and Yes no hepatosplenomegaly : COMMON NORMALS: Yes no CVA tenderness BLADDER/KIDNEY EXAM: Yes no CVA tenderness Back/Pelvis: COMMON NORMALS: no CVA tenderness Extremity: COMMON NORMALS: normal capillary refill NARRATIVE EXTREMITY EXAM: 2+ pitting edema bilaterally Neuro: COMMON NORMALS: oriented x3 SENSORIUM/ORIENTATION: Yes oriented to person and Yes oriented to place Psych: COMMON NORMALS: mental status grossly normal Skin: NARRATIVE SKIN EXAM: Bilateral 2+ pitting edema, generalized anasarca Urinary Catheter Management^: [place]: Cath Placed During This Visit: no Data : 03/12/19 04:15 03/12/19 04:15 Micro: Microbiology 03/09/19 13:20 Urine Culture - Final Urine,Clean Catch Roseanne albicans A&P Assessment and plan (1) Severe pulmonary arterial systolic hypertension: Status: Acute Code(s): I27.21 - Secondary pulmonary arterial hypertension (2) Nonischemic congestive cardiomyopathy: Status: Acute Code(s): I42.0 - Dilated cardiomyopathy (3) Acute on chronic systolic heart failure: Status: Acute Code(s): I50.23 - Acute on chronic systolic (congestive) heart failure (4) Single kidney: Status: Acute Code(s): Z90.5 - Acquired absence of kidney (5) Congestive heart failure: Status: Acute Qualifiers: Heart failure chronicity: acute on chronic Heart failure type: unspecified Qualified Code(s): I50.9 - Heart failure, unspecified Code(s): I50.9 - Heart failure, unspecified (6) Acute kidney injury: Status: Acute Code(s): N17.9 - Acute kidney failure, unspecified (7) Hypertension: Status: Acute Qualifiers: Hypertension type: essential hypertension Qualified Code(s): I10 - Essential (primary) hypertension Code(s): I10 - Essential (primary) hypertension (8) Hyperlipidemia: Status: Acute Qualifiers: Hyperlipidemia type: mixed hyperlipidemia Qualified Code(s): E78.2 - Mixed hyperlipidemia Code(s): E78.5 - Hyperlipidemia, unspecified (9) AAA (abdominal aortic aneurysm): Status: Acute Qualifiers: Presence of rupture: without rupture Qualified Code(s): I71.4 - Abdominal aortic aneurysm, without rupture Code(s): I71.4 - Abdominal aortic aneurysm, without rupture (10) DVT (deep venous thrombosis): Status: Acute Qualifiers: DVT location: lower extremity Affected thrombotic vein of extremity: femoral Chronicity: chronic Laterality: unspecified laterality Qualified Code(s): 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 Code(s): I82.409 - Acute embolism and thrombosis of unspecified deep veins of unspecified lower extremity (11) Cardiomyopathy: Status: Acute Code(s): I42.9 - Cardiomyopathy, unspecified (12) Anemia: Status: Acute Qualifiers: Anemia type: iron deficiency Iron deficiency anemia type: other iron deficiency Qualified Code(s): D50.8 - Other iron deficiency anemias Code(s): D64.9 - Anemia, unspecified (13) Anasarca: Status: Acute Code(s): R60.1 - Generalized edema (14) Acute respiratory failure: Status: Acute Code(s): J96.00 - Acute respiratory failure, unspecified whether with hypoxia or hypercapnia Additional A&P Information Acute hypoxic hypercarbic respiratory failure secondary to acute flash pulmonary edema, and systolic heart failure -Patient has diuresed 2.6 L in the last 24 hours, creatinine is 1.7 -PCO2 remains elevated 72.9, pH 7.32 -Although patient's responding well to the Bumex, still has generalized anasarca, still quite short of breath, requiring BiPAP almost 31/08 -Patient is weak, poor functional status, deconditioning, bedbound -Patient is in the ICU -On BiPAP -Diuresing with Demadex drip and metolazone -Dobutamine was stopped -Levophed as needed for hypotensive episodes -Hull catheter in place -Monitor lactic acids -Currently patient is a full code, patient is high risk for intubation -Cardiology is on consult and nephrology is on consult -Patient is considering hospice anasarca : -Due to Systolic congestive heart failure 2/2 Ischemic cardiomyopathy -Urine output is improving Last LEXISCAN SPECT CARDIAC STRESS TEST ([id number]) 04/01/2018 1. Unremarkable Lexiscan infusion. 2. Nuclear imaging to follow. 3. Hypertension Old myocardial infarction versus scarring noted in basal to distal anterior and apical wall. This study is negative for ischemia. There appeared to be multiple wall motion abnormalities as defined above. EKG segment will be documented separately ECHOCARDIOGRAPHY, COMPLETE ([id number]) 08/09/2018 Severe diffuse hypokinesia of the left ventricle with ejection fraction of 28%. Dilated left irregular cavity with Mild biatrial enlargement, Mod TR, PASP- 74 mmhg CKD secondary to single functioning kidney along with cardiorenal syndrome. Holding nephrotoxic agents Creatinine 1.7 Treatment as above. Neurology on consult COPD exacerbation due to congestive heart failure exacerbation and active smoking: On BiPAP Duoneb round the clock, Budesonide BID. Anemia, hemoglobin 9.8, stable, will continue to monitor Previous history of DVT currently on Eliquis DVT prophylaxis: Not needed currently, she is on Eliquis Goals of care: Currently patient is a full code, considering hospice Cardiac renal diet Attestations Medical Necessity Statement*: Patient patient requires continued hospitalization for acute respiratory failure Coding Level of Care Code Acute Cost Accounting Clerk for Jhonny Landers Diagnoses Severe pulmonary arterial systolic hypertension I27.21 Nonischemic congestive cardiomyopathy I42.0 Acute on chronic systolic heart failure I50.23 Single kidney Z90.5 Congestive heart failure I50.9 Heart failure chronicity: acute on chronic Heart failure type: unspecified Acute kidney injury N17.9 Hypertension I10 Hypertension type: essential hypertension Hyperlipidemia E78.2 Hyperlipidemia type: mixed hyperlipidemia AAA (abdominal aortic aneurysm) I71.4 Presence of rupture: without rupture DVT (deep venous thrombosis) I82.519 DVT location: lower extremity Affected thrombotic vein of extremity: femoral Chronicity: chronic Laterality: unspecified laterality Cardiomyopathy I42.9 Anemia D50.8 Anemia type: iron deficiency Iron deficiency anemia type: other iron deficiency Anasarca R60.1 Acute respiratory failure J96.00
[2019-03-12] MEDS: morphine 4 mg/mL SDV 1 mL 1 MG IVP ×2 (18:09→23:07)
--- NOTE | 2019-03-12 19:30 | PC.NURSE ---
Report given to LISBETH Miramontes. Pt more confused than this am. She is more confused now that the Dobutamine is no longer infusing. It was discontinued because it had been infusing for 48 hours, did not want to cause damage to her single kidney. There is now morphine 1mg q 6hr for pain a dose was given around 1808 and she is still hurting. There is also Arivan TID now. Her heart rhythm is irregular and not perfusing well, her pulse is irregular in strength and rate. Bumex still infusing. Her Other daughter, Macey, called , informed of her furhter decline. she is going to get her Dad (pt's ) and come back. Another daughter at bedside.
--- NOTE | 2019-03-12 19:51 | PC.NURSE ---
7 PM physician notified of pt condition and code status. Pt family including at bedside. Family educated on hospice and comfort care. Pt is confused and complaining of pain, when asked where its at, pt points to her abdomen. Pt family educated on the use of iv morphine and ativan for comfort, but can cause resp depression and slower heart rate.
--- NOTE | 2019-03-12 23:09 | PC.NURSE ---
and daughters requesting hospice information. asking if physician can round early in morning. Family requested IV morphine for headache. Monitor in room silenced for pt comfort. Low urine output despite bumex gtt infusing.
[2019-03-13] VITALS (35 sets, daily range): BP systolic 99–123; BP diastolic 46–67; PULSE 32–67; RESP 12–37; TEMP 36.5; O2SAT 71–100; BMI 32.1
[2019-03-13] MEDS: famotidine 20 mg/2 mL INJ IVP (02:24)
[2019-03-13] MEDS: ipratropium-albuterol 3 mL Neb INHALATION ×2 (02:29→08:05)
[2019-03-13 04:13] LABS: ABG PH Result 7.28 (7.35-7.45); Arterial Blood Gas Hematocrit 30.7 % (37-47); Base Excess ABG 9.7 mmol/L (-2.0-2.0); Blood Gas Allen Test Pos; Blood Gas Sample Site Radial, left; Blood Gas Sample Type Arterial; HCO3 ABG 38.8 mmol/L (22-26); Oxygen Device NC
[2019-03-13 04:25] LABS: ABG PCO2 83.3 mmHg (35-45)
[2019-03-13 04:54] LABS: Basophils % 0.2 %; Eosinophils % 0.2 %; Hematocrit 31.2 % (37.0-47.0); Hemoglobin 9.4 g/dL (11.5-15.3); Lymphocytes # 0.5 10^3/uL (0.8-4.8); Lymphocytes % 11.2 %; Mean Corpuscular HGB Conc 30.1 g/dL (30.0-36.0); Mean Corpuscular Hemoglobin 27.7 pg (28.0-34.0); Mean Platelet Volume 10.7 fL (7.4-10.4); Monocytes # 0.6 10^3/uL (0.2-0.9); Monocytes % 13.7 %; Neutrophils # 3.2 10^3/uL (1.8-7.7); Neutrophils % 74.5 %; Nucleated Red Blood Cells % 0 %; Platelet Count 118 10^3/cmm (130-400); Red Blood Count 3.39 10^6/uL (4.1-5.3); Red Cell Distribution Width 18.7 % (12.1-15.1); White Blood Count 4.3 10^3/uL (4.0-10.0)
[2019-03-13 04:58] LABS: Alanine Aminotransferase 8 U/L (0-33); Albumin Level 2.8 g/dL (3.5-5.2); Alkaline Phosphatase 101 IU/L (35-105); Anion Gap 14.5 (5-19); Aspartate Amino Transferase 14 U/L (0-32); Blood Urea Nitrogen 39 mg/dL (8-23); Calcium 10.7 mg/dL (8.5-10.5); Carbon Dioxide 33 mmol/L (22-29); Chloride 93 mmol/L (98-107); Glucose 105 mg/dL (74-106); Magnesium 2.1 mg/dL (1.7-2.3); Phosphorus 4.3 mg/dL (2.5-4.5); Potassium 3.5 mmol/L (3.5-5.1); Sodium 137 mmol/L (136-145); Total Bilirubin 0.7 mg/dL (0.15-1.2); Total Protein 5.8 g/dL (6.6-8.7)
[2019-03-13] MEDS: morphine 4 mg/mL SDV 1 mL 1 MG IVP ×2 (06:16→12:19)
[2019-03-13] MEDS: budesonide 0.5 mg/2 mL Neb INHALATION (08:05)
--- NOTE | 2019-03-13 08:46 | PC.NURSE ---
Family requested to speak to physician regarding going home on hospice. Family very upset due to wanting to be discharged first thing this morning. Physician notified at this time.
[2019-03-13] MEDS: apixaban 5 mg Tablet PO (09:14)
[2019-03-13] MEDS: spironolactone 25 mg Tablet PO (09:15)
[2019-03-13] MEDS: nystatin 100,000 unit/mL UDC 5 mL 500000 UNIT PO ×2 (09:25→14:57)
--- NOTE | 2019-03-13 09:29 | PC.SOCIAL ---
IMM update Pg 2 of IMM was updated with family and copy was provided. They verbalized understanding and had no questions.
--- NOTE | 2019-03-13 10:50 | PC.CHAP ---
Addendum entered by Da Nichols 03/13/19 10:57: Patient was visited by Brake Lining Maker Da Nichols Original Note: Pastoral Care Encounter/Spiritual Assessment Type of Contact [] Declined automotive specialty technician visit [x] Patient/Family/Request visit [] Outpatient visit [] Follow-up visit [] Physician referral [] Code/Alert [] Routine visit [] Staff referral [] Actively dying [] Patient sleeping [x] Family support [] [] Out of room [] Palliative care [] [] Receiving care in room [] Pre-surgical visit [] Trauma [x] Long length of stay [x] ICU visit [] Other: Relational/Emotional Strength [x] Patient feels connected with others/family/visitors/staff [] Distress [] Loneliness/isolation [] Abandonment Spirituality of Patient [x] Person of Elvia [] Attends Islam of their Elvia [x] Believes in Prayer [] Reads Bible or Alevism materials [] There are Spiritual issues to be addressed Brake Lining Maker Interventions [x] Prayer [x] Active listening [x] Non-anxious presence [x] Spiritual/emotional support [] Crisis/trauma care [] Spiritual counseling [] Bereavement support [] Provided bereavement packet [] Provided Bible/devotional materials [] Provided toy/stuffed animal, coloring book to patient or family member [] Provided Communion [] Anointing/Davis [] Salvation [x] Completed spiritual assessment [] Other: Impact on Illness or Injury [] Angry [] Fearful [] Anxious [] Often cries [] Exhaustion [] Unable to work [] Unable to attend moravian [] Unable to walk/stand [] Unable to read [] Unable to drive [] Unable to eat/drink [] Unable to sleep [] Unable to be with family [] Patient intubated [] Other: Summary Patient was able to communicate yes and no by head nod but not verbally. The patient's family requested prayer and we also visited about the patient doing better today . Time spent with patient 10 minutes
--- NOTE | 2019-03-13 11:48 | PM.PN ---
Subjective Subjective: Interval history: Chart reviewed, family has decided on hospice. Patient and family are well known to me. Patient is quite frail and confused but clear about wanting to go home. Spoke with hospice leather goods sales representative. Medications: Reviewed: Yes Medication Review Details: Current Medications Generic Name Dose Route Start Last Admin Trade Name Freq PRN Reason Stop Dose Admin Acetaminophen 650 mg 03/09/19 23:56 03/12/19 14:41 Tylenol PO 650 mg Q6H PRN Administration MILD PAIN Albuterol/Ipratrop ium 3 ml 03/09/19 15:00 03/13/19 08:05 Duoneb INHALATION 3 ml Q6H.RESPIRATORY S CH Administration Apixaban 5 mg 03/09/19 09:00 03/13/19 09:14 Eliquis PO 5 mg BID AVILA Administration Atorvastatin Calci um 20 mg 03/09/19 21:00 03/12/19 22:14 Lipitor PO Not Given BEDTIME AVILA Bisacodyl 10 mg 03/09/19 12:58 03/11/19 09:17 Dulcolax PO 10 mg DAILY PRN Administration CONSTIPATION Budesonide 0.5 mg 03/09/19 20:00 03/13/19 08:05 Pulmicort INHALATION 0.5 mg BID.RESPIRATORY S CH Administration Famotidine 20 mg 03/09/19 13:00 03/13/19 02:24 Pepcid Inj IVP 20 mg Q12H AVILA Administration Bumetanide 25 mg/ N/A 100 mls @ 4 mls/h r 03/11/19 13:45 03/13/19 09:13 IV Infused .Q24H AVILA Infusion 1 MG/HR Metoprolol Succina te 12.5 mg 03/09/19 09:00 03/10/19 09:14 Toprol Xl PO 12.5 mg DAILY AVILA Administration Morphine Sulfate 1 mg 03/12/19 17:15 03/13/19 06:16 Morphine IVP 1 mg Q6H PRN Administration PAIN Nystatin 500,000 unit 03/11/19 15:15 03/13/19 09:25 Nystatin PO 500,000 unit QID AVILA Administration Spironolactone 25 mg 03/11/19 11:05 03/13/19 09:15 Aldactone PO 25 mg DAILY AVILA Administration Vitals/I&O/Wt Last Vital Signs Temp 97.7 F 03/13/19 02:00 Pulse 58 L 03/13/19 11:08 Resp 16 03/13/19 08:30 BP 105/54 03/13/19 08:30 Pulse Ox 95 03/13/19 11:08 03/12/19 03/13/19 03/13/19 22:59 06:59 14:59 Intake Total 30 / 636.907 150 / 150 Output Total 675 / 675 Balance -645 / -38.093 150 / 150 Weight last 48 hrs Weight 82.327 kg Weight 82.327 kg Physical Exam Const: COMMON NORMALS: no apparent distress and alert GENERAL APPEARANCE: anxious ORIENTATION/CONSCIOUSNESS: Yes awake and Yes confused OTHER: -very frail HENMT: COMMON NORMALS: normocephalic, head/scalp atraumatic and hearing grossly normal bilaterally HEAD & SCALP: normocephalic and atraumatic MOUTH: moist mucous membranes abnormal Details: parched TEETH & GINGIVA: Yes dentures Eye: COMMON NORMALS: PERRL, EOMs intact bilaterally and conjunctivae normal CONJUNCTIVA: Yes conjunctivae normal PUPIL: Yes PERRL Neck/C-Spine: COMMON NORMALS: full ROM GENERAL: Yes normal visual inspection and Yes trachea midline Resp: EFFORT & INSPECTION: No able to speak in complete sentences, Yes symmetric chest movement, Yes tachypneic and Yes retractions (minimal) intercostal AUSCULTATION: crackles Cardio: COMMON NORMALS: regular rhythm, S1 normal heart sound, S2 normal heart sound and no murmurs RATE: bradycardic RHYTHM: regular rhythm HEART SOUNDS: S1 normal, S2 normal and murmur systolic (holosystolic) GI: COMMON NORMALS: normal to inspection, nondistended, normoactive bowel sounds, soft to palpation and non-tender PALPATION: Yes soft : BLADDER/KIDNEY EXAM: Yes catheter in place Catheter type (Female): urethral Extremity: COMMON NORMALS: normal to inspection and full ROM; negative for no pedal edema OTHER: bilateral upper extremity edema (non-pitting) and multiple skin tears Neuro: COMMON NORMALS: no focal motor deficits and no sensory deficits noted SENSORIUM/ORIENTATION: Yes alert and Yes orientation impaired Psych: COMMON NORMALS: cooperative, affect normal and speech normal SPEECH: Yes normal speech Skin: COMMON NORMALS: no jaundice, no petechiae and no mottling OTHER: -multiple skin tears on bilateral upper extremities Urinary Catheter Management^: Hull: Cath Placed During This Visit: no Data : 03/13/19 04:06 03/13/19 04:06 A&P Assessment and plan (1) Acute on chronic systolic heart failure: -acutely decompensated chronic systolic CHF, clinically has anasarca -BNP > 72,000 -so far has diuresed 3.4 L -on Bumex drip, aldactone -off Dobutamine -Cardio on board, input appreciated -supplemental oxygen, BiPAP as needed -telemetry monitoring -continued monitoring of hemodynamic and respiratory status -Echo: EF=10-15%, severe pulmonary HTN, moderately severe MR, moderate biatrial enlargement -pressor support as needed to maintain MAP > 65 Status: Acute Code(s): I50.23 - Acute on chronic systolic (congestive) heart failure (2) Decompensated COPD with exacerbation (chronic obstructive pulmonary disease): -close monitoring of respiratory status -supplemental oxygen, BiPAP as needed -Neb treatments as needed -Oxygen dependent COPD; 2 L at baseline Status: Acute Code(s): J44.1 - Chronic obstructive pulmonary disease with (acute) exacerbation (3) Acute respiratory failure: -high oxygen requirement currently -secondary to combination of acute CHF exacerbation and acute COPD exacerbation Status: Acute Qualifiers: Respiratory failure complication: hypercapnia Qualified Code(s): J96.02 - Acute respiratory failure with hypercapnia Code(s): J96.00 - Acute respiratory failure, unspecified whether with hypoxia or hypercapnia (4) Severe pulmonary arterial systolic hypertension: -as noted above Status: Acute Code(s): I27.21 - Secondary pulmonary arterial hypertension Additional A&P Information -Chronic sinus bradycardia; has not been on BB. Baseline HR is high 50s -Acute encephalopathy; baseline is A & O x 3, functional -Primary hyperparathyroidism -Hx of PE, DVT; on AC with Eliquis -hx of ischemic cardiomyopathy -Chronic back pain; on chronic opiates -Chronic normocytic anemia; baseline 9-10 -GERD -ANA on CKD stage 2; baseline Cr around 1.2 -AAA s/p endovascular repair (02/2018) -Chronic active smoker (< 1 PPD) -overall very poor prognosis. Family decided on hospice. Very high risk for continued decompensation so continue ICU care -Dispo: home with hospice Attestations Medical Necessity Statement*: Discharge today Time Spent in Patient Care: Greater than 35 minutes (>than 50% of time spent in counselling and/or direct pt care on unit). Coding Level of Care Code Acute Technical Operations Specialist for Jhonny Fwlori Exam Problem Focused Diagnoses Acute on chronic systolic heart failure I50.23 Decompensated COPD with exacerbation (chronic obstructive pulmonary disease) J44.1 Acute respiratory failure J96.02 Respiratory failure complication: hypercapnia Severe pulmonary arterial systolic hypertension I27.21
--- NOTE | 2019-03-13 12:49 | PM.DCS ---
Discharge Providers Date of Admission: 03/08/19 19:38 Date of Discharge: Date of Discharge: March 13, 2019 Attending Provider at Admission: Genny Stinson MD Attending Provider at Discharge: Tia Bledsoe MD Diagnoses at Discharge Discharge Diagnosis (1) Acute on chronic systolic heart failure: Status: Acute Problem details: -acutely decompensated chronic systolic CHF, clinically has anasarca -BNP > 72,000 -so far has diuresed 3.4 L -on Bumex drip, aldactone -off Dobutamine -Cardio on board, input appreciated -supplemental oxygen, BiPAP as needed -telemetry monitoring -continued monitoring of hemodynamic and respiratory status -Echo: EF=10-15%, severe pulmonary HTN, moderately severe MR, moderate biatrial enlargement -pressor support as needed to maintain MAP > 65 (2) Decompensated COPD with exacerbation (chronic obstructive pulmonary disease): Status: Acute Problem details: -close monitoring of respiratory status -supplemental oxygen, BiPAP as needed -Neb treatments as needed -Oxygen dependent COPD; 2 L at baseline -currently requiring 6 L (3) Acute respiratory failure: Status: Acute Qualifiers: Respiratory failure complication: hypercapnia Qualified Code(s): J96.02 - Acute respiratory failure with hypercapnia (4) Severe pulmonary arterial systolic hypertension: Status: Acute Other Information Additional DC diagnoses/information: -Chronic sinus bradycardia; has not been on BB. Baseline HR is high 50s -Acute encephalopathy; baseline is A & O x 3, functional -Primary hyperparathyroidism -Hx of PE, DVT; on AC with Eliquis -hx of ischemic cardiomyopathy -Chronic back pain; on chronic opiates -Chronic normocytic anemia; baseline 9-10 -GERD -ANA on CKD stage 2; baseline Cr around 1.2 -AAA s/p endovascular repair (02/2018) -Chronic active smoker (< 1 PPD) Reason for Visit Reason for Visit: Reason For Visit: swollen limbs Hospital Course Hospital Course: Patient initially presented with anasarca and was found to be in acute CHF exacerbation and COPD exacerbation. She required aggressive diuresis and had a repeat echo done showing an ejection fraction of 10 to 15%. Cardiology and nephrology were consulted and patient did require dobutamine drip for a brief period of time. Overall she did not respond well to diuretics and her oxygen requirement continued to increase. Overall prognosis has been quite poor and she has continued to clinically decompensate. Following extensive discussions with patient and family regarding goals of care they eventually agreed to home with hospice which has been arranged. Patient had a Hull catheter placed on admission which will remain in place on discharge as she will be going home with hospice. Her oxygen requirement has increased and will need to be titrated as needed to maintain a saturation at or above 92%. She has been bedbound for the majority of her hospital stay and anticipate that this will continue as the process advances. Extensive education has been provided to patient and family. Discharge Summary: See details above. Patient will require follow-up with her hospice provider. Per discussion with hospice videotape sales representative, hospice provider will take care of all of her prescriptions on discharge. Appropriate DME has been set up. Physical Exam Const: COMMON NORMALS: no apparent distress and alert GENERAL APPEARANCE: anxious ORIENTATION/CONSCIOUSNESS: Yes awake and Yes confused OTHER: -very frail HENMT: COMMON NORMALS: normocephalic, head/scalp atraumatic and hearing grossly normal bilaterally HEAD & SCALP: normocephalic and atraumatic MOUTH: moist mucous membranes abnormal Details: parched TEETH & GINGIVA: Yes dentures Eye: COMMON NORMALS: PERRL, EOMs intact bilaterally and conjunctivae normal CONJUNCTIVA: Yes conjunctivae normal PUPIL: Yes PERRL Neck/C-Spine: COMMON NORMALS: full ROM GENERAL: Yes normal visual inspection and Yes trachea midline Resp: COMMON NORMALS: normal respiratory effort, no retractions and no use of accessory muscles EFFORT & INSPECTION: No able to speak in complete sentences, Yes symmetric chest movement, Yes tachypneic and Yes retractions (minimal) intercostal AUSCULTATION: crackles Cardio: COMMON NORMALS: regular rhythm, S1 normal heart sound, S2 normal heart sound and no murmurs RATE: bradycardic RHYTHM: regular rhythm HEART SOUNDS: S1 normal, S2 normal and murmur systolic (holosystolic) GI: COMMON NORMALS: normal to inspection, nondistended, normoactive bowel sounds, soft to palpation and non-tender PALPATION: Yes soft : BLADDER/KIDNEY EXAM: Yes catheter in place Catheter type (Female): urethral Extremity: COMMON NORMALS: normal to inspection and full ROM; negative for no pedal edema OTHER: bilateral upper extremity edema (non-pitting) and multiple skin tears Neuro: COMMON NORMALS: no focal motor deficits and no sensory deficits noted SENSORIUM/ORIENTATION: Yes alert and Yes orientation impaired Psych: COMMON NORMALS: cooperative, affect normal and speech normal SPEECH: Yes normal speech Skin: COMMON NORMALS: no jaundice, no petechiae and no mottling OTHER: -multiple skin tears on bilateral upper extremities Urinary Catheter Management^: [place]: Cath Placed During This Visit: no Discharge Data Data Completed and Pending: Completed Studies During Hospitalization Category Date Time Status CT abdomen pelvis wo con [id number] Urge nt Cat Scan 03/08/19 18:[address] chest wo con 7 [id number] Stat Cat Scan 03/11/19 09:23 Completed XR chest 1V filemon ble [id number] Routine Exams 03/12/19 07:00 Completed XR chest 1V filemon ble [id number] Stat Exams 03/11/19 09:16 Completed XR chest 1V filemon ble [id number] Urgent Exams 03/08/19 15:37 Completed CV echo complete* [id number] Stat Ultrasound 03/11/19 09:16 [place] [id number] Routin e Ultrasound 03/09/19 12:41 Completed US renal BI* [id number] Routine Ultrasound 03/09/19 12:44 Completed Pending at discharge Category Date Time Status Arterial Blood Ga s W/O Coox AM LABS Lab 03/14/19 04:00 Ordered CBC [Complete Blo od Count w/Auto] A M LABS Lab 03/14/19 04:00 Ordered Comprehensive Met abolic Panel AM LA BS Lab 03/14/19 04:00 Ordered Magnesium AM LABS Lab 03/14/19 04:00 Ordered Phosphorus AM LAB S Lab 03/14/19 04:00 Ordered Procalcitonin AM LABS Lab 03/14/19 04:00 Ordered Labs from last 24 hours 03/13/19 03/13/19 03/13/19 04:12 04:06 04:06 WBC RBC Hgb Hct MCV MCH MCHC RDW Plt Count MPV Neut % (Auto) Lymph % (Auto) Richardson % (Auto) Eos % (Auto) Baso % (Auto) Neut # (Auto) Lymph # (Auto) Richardson # (Auto) Eos # (Auto) Baso # (Auto) Nucleated RBC % (a uto) Nucleated RBCs # Specimen Type Arterial Sample Site Radial, left ABG pH 7.28 L ABG pCO2 83.3 H* ABG pO2 117.0 H ABG HCO3 38.8 H ABG Base Excess 9.7 H Khai Test Pos Hematocrit 30.7 L O2 Delivery Device Nc O2 Liters/Min 6.0 [employer] Forms Developer ID hinja Sodium 137 Potassium 3.5 Chloride 93 L Carbon Dioxide 33 H Anion Gap 14.5 BUN 39 H Creatinine 1.7 H Glucose 105 Calcium 10.7 H Phosphorus 4.3 Magnesium 2.1 Total Bilirubin 0.7 AST 14 ALT 8 Alkaline Phosphata se 101 Total Protein 5.8 L Albumin 2.8 L Globulin 3.0 Procalcitonin 0.10 03/13/19 04:06 WBC 4.3 RBC 3.39 L Hgb 9.4 L Hct 31.2 L MCV 92.0 MCH 27.7 L MCHC 30.1 RDW 18.7 H Plt Count 118 L MPV 10.7 H Neut % (Auto) 74.5 Lymph % (Auto) 11.2 Richardson % (Auto) 13.7 Eos % (Auto) 0.2 Baso % (Auto) 0.2 Neut # (Auto) 3.2 Lymph # (Auto) 0.5 L Richardson # (Auto) 0.6 Eos # (Auto) 0.0 Baso # (Auto) 0.0 Nucleated RBC % (a uto) 0 Nucleated RBCs # 0.0 Specimen Type Sample Site ABG pH ABG pCO2 ABG pO2 ABG HCO3 ABG Base Excess Khai Test Hematocrit O2 Delivery Device O2 Liters/Min [employer] Forms Developer ID Sodium Potassium Chloride Carbon Dioxide Anion Gap BUN Creatinine Glucose Calcium Phosphorus Magnesium Total Bilirubin AST ALT Alkaline Phosphata se Total Protein Albumin Globulin Procalcitonin Vitals: Last Vital Signs Temp 97.7 F 03/13/19 02:00 Pulse 58 L 03/13/19 11:08 Resp 24 H 03/13/19 12:19 BP 105/54 03/13/19 08:30 Pulse Ox 92 03/13/19 12:19 Discharge Plan Discharge Patient Disposition: Hospice - Home Condition: Serious Prescriptions: Discontinued furosemide [Lasix] 80 mg tablet 80 mg PO TID RF: 0 potassium chloride 20 meq PO DAILY RF: 0 bumetanide 2 mg PO DAILY RF: 0 lorazepam 0.5 mg tablet 0.5 mg PO QDAY PRN (Reason: Anxiety) RF: 0 nitroglycerin [Nitrostat] 0.4 mg tablet, sublingual 0.4 mg SUBLINGUAL Q5M PRN (Reason: Chest Pain) RF: 0 albuterol sulfate 2.5 mg /3 mL (0.083 %) solution for nebulization 2.5 mg INHALATION Q6H PRN (Reason: Shortness Of Breath) RF: 0 vitamin B complex [B Complex-Vitamin B12] Tablet 1 tab PO QDAY RF: 0 Eliquis 5 mg tablet 5 mg PO BID RF: 0 ropinirole 1 - 2 mg PO DAILY RF: 0 Discharge Orders: Discharge Order (Routine); Ordered 03/13/19 Ordered By: Tia Bledsoe Discharge Diet: As Directed Discharge Activity: Bedrest Discharge Attestations Time Spent in Discharge Care*: greater than 30 min Specific Discharge Activities: Specific discharge activities: educating and/or supporting family/caregiver and discussing with watch caser/social workers/dc planners Status at Discharge: Cognitive status at discharge: moderately impaired cognition, Behavioral status at discharge: cooperative, Functional status at discharge: bed bound Overall status at discharge: patient has a new baseline Quality Metrics Clinical Quality Measures During this hospital stay, did patient experience: None Coding Level of Care Code Acute Machine Heel Seat Fitter for Jhonny Landers Diagnoses Acute on chronic systolic heart failure I50.23 Decompensated COPD with exacerbation (chronic obstructive pulmonary disease) J44.1 Acute respiratory failure J96.02 Respiratory failure complication: hypercapnia Severe pulmonary arterial systolic hypertension I27.21
--- NOTE | 2019-03-13 12:52 | P.PN_ITS ---
Subjective Subjective: Interval history: The patient looks little more lethargic today. Her urine output is going down. She has no fever, chills or cough. Has some shortness of breath. Medications: Reviewed: Yes Medication Review Details: Current Medications Acetaminophen (Tylenol) 650 mg PO Q6H PRN PRN Reason: MILD PAIN Last Admin: 03/12/19 14:41 Dose: 650 mg Documented by: Albuterol/Ipratropium (Duoneb) 3 ml INHALATION Q6H.RESPIRATORY AVILA Last Admin: 03/13/19 08:05 Dose: 3 ml Documented by: Apixaban (Eliquis) 5 mg PO BID AVILA Last Admin: 03/13/19 09:14 Dose: 5 mg Documented by: Atorvastatin Calcium (Lipitor) 20 mg PO BEDTIME AVILA Last Admin: 03/12/19 22:14 Dose: Not Given Documented by: Bisacodyl (Dulcolax) 10 mg PO DAILY PRN PRN Reason: CONSTIPATION Last Admin: 03/11/19 09:17 Dose: 10 mg Documented by: Budesonide (Pulmicort) 0.5 mg INHALATION BID.RESPIRATORY AVILA Last Admin: 03/13/19 08:05 Dose: 0.5 mg Documented by: Famotidine (Pepcid Inj) 20 mg IVP Q12H [facility] Last Admin: 03/13/19 02:24 Dose: 20 mg Documented by: Norepinephrine Bitartrate 4 mg (/ Dextrose) 254 mls @ 0 mls/hr IV .Q0M AVILA; Protocol Bumetanide 25 mg/ N/A 100 mls @ 4 mls/hr IV .Q24H [facility] Last Infusion: 03/13/19 09:13 Dose: Infused Documented by: Lorazepam (Ativan) 0.5 mg PO TID PRN PRN Reason: ANXIETY Magnesium Hydroxide (Milk Of Magnesia) 30 ml PO DAILY PRN PRN Reason: CONSTIPA Metoprolol Succinate (Toprol Xl) 12.5 mg PO DAILY [facility] Last Admin: 03/10/19 09:14 Dose: 12.5 mg Documented by: Morphine Sulfate (Morphine) 1 mg IVP Q6H PRN PRN Reason: PAIN Last Admin: 03/13/19 12:19 Dose: 1 mg Documented by: Nystatin (Nystatin) 500,000 unit PO QID AVILA Last Admin: 03/13/19 09:25 Dose: 500,000 unit Documented by: Ondansetron HCl (Zofran) 4 mg PO Q8H PRN PRN Reason: NAUSEA AND VOMITING Spironolactone (Aldactone) 25 mg PO DAILY AVILA Last Admin: 03/13/19 09:15 Dose: 25 mg Documented by: Vitals/I&O/Wt Last Vital Signs Temp 97.7 F 03/13/19 02:00 Pulse 58 L 03/13/19 11:08 Resp 24 H 03/13/19 12:19 BP 105/54 03/13/19 08:30 Pulse Ox 92 03/13/19 12:19 03/12/19 03/13/19 03/13/19 22:59 06:59 14:59 Intake Total 30 / 636.907 150 / 150 Output Total 675 / 675 Balance -645 / -38.093 150 / 150 Weight last 48 hrs Weight 181 lb 8 oz Weight 181 lb 8 oz Physical Exam Narrative: EXAM NARRATIVE: GENERAL: The patient is very lethargic. Not in any distress. Slightly tachypneic HEENT: Moderate pallor no icterus or lymphadenopathy. The pupils are reactant to light. Oral cavity: There are no mucous membrane lesions. NECK: Trachea appears to be central. No masses noted. Prominent neck veins. No thyromegaly appreciated. No carotid bruit. RESPIRATORY: Chest is symmetrical. Breath sounds are heard bilaterally with scattered expiratory wheezing and coarse crackles. No evidence of consolidation BREASTS: Deferred. Significant edema on the dependent parts of the chest HEART: The PMI is in the 5th left intercostals space just outside the midclavic ular line. First heart sound is normal. Loud S2 soft S3. Short systolic murmur in the left sternal border. No diastolic murmurs. No pericardial rub. ABDOMEN: No vessel pulsations or distention. No tenderness. No organomegaly appreciated. No abdominal bruit. Bowel sounds are normally heard. : Deferred. RECTAL: Deferred. LYMPHATIC: No lymphadenopathy noted in the neck or groin. EXTREMITIES: Features of anasarca. She has edema in all the dependent parts of the body-thoracic area, gluteal region, left arm and the leg. 2+ pitting edema of the lower extremities MUSCULOSKELETAL: No acute joint deformities or swelling SKIN: There are no significant scars or skin rash noted. NEUROPSYCHIATRIC: The patient is alert and oriented x1. Patient is very lethargic, chronically ill looking and currently using oxygen by nasal cannula, 6 L/min Urinary Catheter Management^: [place]: Cath Placed During This Visit: no Data : 03/13/19 04:06 03/13/19 04:06 Other Labs: Abnormal lab results 03/13/19 03/13/19 03/13/19 Range/Units 04:06 04:06 04:12 RBC 3.39 L (4.1-5.3) 10^6/uL Hgb 9.4 L (11.5-15.3) g/dL Hct 31.2 L (37.0-47.0) % MCH 27.7 L (28.0-34.0) pg RDW 18.7 H (12.1-15.1) % Plt Count 118 L (130-400) 10^3/cmm MPV 10.7 H (7.4-10.4) fL Lymph # (Auto) 0.5 L (0.8-4.8) 10^3/uL ABG pH 7.28 L (7.35-7.45) ABG pCO2 83.3 H* (35-45) mmHg ABG pO2 117.0 H (80.0-100.0) mmHg ABG HCO3 38.8 H (22-26) mmol/L ABG Base Excess 9.7 H (-2.0-2.0) mmol/L Hematocrit 30.7 L (37-47) % Chloride 93 L (98-107) mmol/L Carbon Dioxide 33 H (22-29) mmol/L BUN 39 H (8-23) mg/dL Creatinine 1.7 H (0.5-0.9) mg/dL Calcium 10.7 H (8.5-10.5) mg/dL Total Protein 5.8 L (6.6-8.7) g/dL Albumin 2.8 L (3.5-5.2) g/dL A&P Assessment and plan (1) Acute on chronic systolic heart failure: Patient has severe left ventricular systolic dysfunction with a progressive increase in the BNP and worsening of the ejection fraction. She did not have any ischemia, based on the perfusion scan. She also has no chest pain. She also has severe pulmonary hypertension She received just 48 hours of dobutamine fusion. Patient does not seems to make any progress at this point. Her urine output is declining. In view of her multiple comorbidities, the overall prognosis extremely poor. Status: Acute Code(s): I50.23 - Acute on chronic systolic (congestive) heart failure (2) Nonischemic congestive cardiomyopathy: The LV ejection fraction has been progressively declining. The EF was around 40% in 2018 which went down to 28% last year and currently it is only around 10 to 15%. There is no significant improvement in the functional status at this point. Status: Acute Code(s): I42.0 - Dilated cardiomyopathy (3) Severe pulmonary arterial systolic hypertension: The pulmonary artery peak systolic pressure was around 80 mmHg. In view of the severe LV systolic dysfunction and COPD, the treatment options are limited. Continue on the current management Status: Acute Code(s): I27.21 - Secondary pulmonary arterial hypertension (4) AAA (abdominal aortic aneurysm): Patient had percutaneous repair of the AAA. Most recent CTA revealed no evidence of any endoleak. We will continue on the current management Status: Acute Qualifiers: Presence of rupture: without rupture Qualified Code(s): I71.4 - Abdominal aortic aneurysm, without rupture Code(s): I71.4 - Abdominal aortic aneurysm, without rupture (5) Decompensated COPD with exacerbation (chronic obstructive pulmonary disease): We will continue to optimize the bronchodilator treatment Status: Acute Code(s): J44.1 - Chronic obstructive pulmonary disease with (acute) exacerbation Additional A&P Information Her other problems are chronic anemia History of DVT History of dyslipidemia Chronic kidney disease Single kidney Hypokalemia We will have once again I discussed with the patient's and the rest of the family about cardiovascular status. She appears to have end-stage heart disease. She has also has severe pulmonary hypertension. Her urine output continues to decline. Her overall prognosis at this point is extremely poor. It would be appropriate for her to go on to hospice care at this point. The family seems to understand this well and is wanting to go this route. The also is in total agreement. It would be appropriate to continue on the current medications and comfort measures. Attestations Medical Necessity Statement*: Disposition as per the primary Coding Level of Care Code Acute Retail Sales Assistant for Jhonny Landers Diagnoses Acute on chronic systolic heart failure I50.23 Nonischemic congestive cardiomyopathy I42.0 Severe pulmonary arterial systolic hypertension I27.21 AAA (abdominal aortic aneurysm) I71.4 Presence of rupture: without rupture Decompensated COPD with exacerbation (chronic obstructive pulmonary disease) J44.1
--- NOTE | 2019-03-13 15:16 | PC.NURSE ---
Physician consulted regarding IV medication. Physician gave verbal orders to discontinue IV medications.
--- NOTE | 2019-03-13 16:20 | PC.NURSE ---
Patient assisted onto [facility] [place] [place]. Patient placed on ambulance monitor and ambulance oxygen. Reviewed code status with family at this time, explained process of CPR to , who stated he didn't want her a full code. Patient belongings gathered and given to grand daughter at this time. Patient transported out of ICU with ambulance crew at side.
== END 2019-03-13 16:00 | disposition hospice, home (50) | DRG 291 ==
LOC: ER 17:49 → MEDSURG 20:35 → CSU 03-10 15:59 → ICU 03-11 10:47
PROVIDERS: Family Medicine; Student in an Organized Health Care Education/Training Program; Absent Provider Internal Medicine; Admitting Provider Internal Medicine; Emergency Provider Family Medicine; Family Provider Nurse Practitioner Family; Visit Provider Family Medicine
DX: I13.0 Hypertensive heart and chronic kidney disease with heart failure and stage 1 through stage 4 chronic kidney disease, or unspecified chronic kidney disease (principal); I50.23 Acute on chronic systolic (congestive) heart failure; J96.02 Acute respiratory failure with hypercapnia; N17.9 Acute kidney failure, unspecified; J44.1 Chronic obstructive pulmonary disease with (acute) exacerbation; G93.40 Encephalopathy, unspecified; I25.5 Ischemic cardiomyopathy; I25.10 Atherosclerotic heart disease of native coronary artery without angina pectoris; I27.20 Pulmonary hypertension, unspecified; I71.4 Abdominal aortic aneurysm, without rupture; Z86.718 Personal history of other venous thrombosis and embolism; E87.6 Hypokalemia; N18.2 Chronic kidney disease, stage 2 (mild); Z98.61 Coronary angioplasty status; E78.5 Hyperlipidemia, unspecified; I08.1 Rheumatic disorders of both mitral and tricuspid valves; F17.210 Nicotine dependence, cigarettes, uncomplicated; D50.9 Iron deficiency anemia, unspecified; Z71.6 Tobacco abuse counseling; Z79.01 Long term (current) use of anticoagulants
CPT/HCPCS: 12345; 36415; 36416; 36600; 51702; 71045; 71250; 74176; 76770; 80048; 80053; 81001; 82436; 82803; 82962; 83540; 83550; 83605; 83735; 83880; 84100; 84133; 84145; 84300; 84443; 84484; 85014; 85018; 85025; 87086; 87106; 93005; 93306; 93970; 94640; 94660; 96365; 96366; 96374; 96375; 97110; 97162; 97530; 99283; J1250; J1940; J2270; J3480; J3490; J7626; Q3014